=== PATIENT | male | born 1930 | race Caucasian/White ===

== ENCOUNTER 2017-10-16 10:02 | Emergency (ER) | payer MEDICARE ==
--- NOTE | 2017-10-16 10:20 | ER Document Report ---
ED Fall - General Stated Complaint: WEAKNESS Time Seen by Provider: 10/16/17 10:06 Mode of Arrival: Stretcher Information source: Relative, Emergency Med Personnel Notes: Patient is an 86-year-old male with past medical history including diabetes and dementia who lives at home with his son and who presents today after a fall that was witnessed 2 days ago. Patient was with his other son when he fell off a kitchen chair onto his buttocks. Patient at that time was able to walk into his bedroom. Since then the son states the patient has been unwilling to walk. He believes it is pain mostly to his right hip. Patient supposedly did not hit his head. Patient has had no nausea, vomiting, fevers, or diarrhea. Patient has not complained of any abdominal pain. Patient is normally not oriented to person place or time and has a difficulty hearing. - HPI Occurred: Other - See above Where: Home Context: Fell from sitting Associated symptoms: None Location of injury/pain: Other - See above Quality of pain: Other - See above Severity: Mild Pain Level: 2 Prehospital interventions: Other - See above - Related data Allergies/Adverse Reactions: No Known Allergies Allergy (Verified 10/16/17 10:19) Past Medical History - General Information source: Patient - Social History Smoking Status: Unknown if Ever Smoked Cigarette use (# per day): No Chew tobacco use (# tins/day): No Smoking Education Provided: No Frequency of alcohol use: None Family History: Reviewed & Not Pertinent Review of Systems - Review of Systems -: Yes ROS unobtainable due to patient's medical condition Physical Exam - Vital signs Vitals: Resp Pulse Ox 20 96 10/16/17 10:15 10/16/17 10:15 Notes: Reviewed vital signs and nursing note as charted by RN. CONSTITUTIONAL: Alert but is not oriented to person place or time HEAD: Normocephalic; atraumatic EYES: PERRL ENT: Normal nose; no rhinorrhea; moist mucous membranes NECK: Supple without meningismus; non-tender; no cervical lymphadenopathy CARD: Regular rate and rhythm; no murmurs; symmetric distal pulses RESP: Normal chest excursion without splinting or tachypnea; breath sounds clear and equal bilaterally; no tenderness to anterior posterior palpation of the ribs ABD/GI: Normal bowel sounds; non-distended; soft, non-tender to deep palpation of all 4 quadrants of the abdomen. No abdominal bruits or palpable masses present BACK: The back appears normal and is non-tender to palpation along the midline spine or posterior ribs EXT: Patient has some tenderness when I attempt to internally or externally rotate his right hip. There is no obvious leg swelling, shortening, or deformities present. I do not palpate any tenderness to the right femur, knee, tibia-fibula, ankle, or foot SKIN: No acute lesions noted NEURO: Patient appears to move bilateral upper extremities without pain or difficulty PSYCH: The patient's mood and manner are appropriate. Grooming and personal hygiene are appropriate. Course - Re-evaluation Re-evalutation: 10/16/17 10:19 Given the above history and physical examination and the limited history, with a witnessed fall 2 days ago, I will obtain basic labs, catheterized urine analysis as the patient is incontinent, and x-ray of the lumbosacral spine, pelvis, and right hip. Labs as recorded. Elevated ketones in the urine. Glucose 300. Liter fluid has been ordered. Catheterized urine analysis shows no obvious infection. Given the x-ray readings, I have added an MRI of the lumbar spine as well as an x-ray of the right femur, knee, tibia/fibula. 10/16/17 16:07 Patient still has no focal weakness of the lower extremities. MRI is recorded. Fluid is still infusing. With the patient's and family's consent, we will attempt to walk the patient slowly. 10/16/17 16:13 I have placed a call and referral to Dr. Saravia, pain management that performs kyphoplasty. 10/16/17 16:39 I have offered the family admission for possible 2 day stay in the hospital for possible referral for a nursing care facility. Family graciously declined. They would like to take the patient home. I have reexamined the patient thoroughly and I still detect only pain to the right leg. No swelling to detect DVT. X-rays and imaging as recorded. Patient will be discharged home with strict return precautions and instructions to follow-up with the primary care physician as well as the ornamental painter. - Vital Signs Vital signs: Temp Pulse Resp BP Pulse Ox 99.4 F 22 H 165/83 H 95 10/16/17 10:27 10/16/17 16:01 10/16/17 16:01 10/16/17 16:01 - Laboratory Result Diagrams: 10/16/17 11:15 10/16/17 11:15 Laboratory results interpreted by me: 10/16/17 10/16/17 10/16/17 11:15 11:15 12:10 WBC 10.9 H RDW 15.2 H Seg Neutrophils % 81.5 H Lymphocytes % 7.8 L Absolute Neutrophils 8.9 H Glucose 301 H AST 16 L ALT 18 L Alkaline Phosphatase 129 H Albumin 3.3 L Urine Protein 30 H Urine Glucose (UA) >=500 H Urine Ketones 80 H Urine Blood SMALL H Discharge - Discharge Clinical Impression: Fall Qualifiers: Encounter type: initial encounter Qualified Code(s): W19.XXXA - Unspecified fall, initial encounter Condition: Good Disposition: HOME, SELF-CARE Additional Instructions: Come back immediately with any increased pain, weakness or numbness, fevers or vomiting, or any other acute problems. Please follow-up with Dr. Saravia as we have discussed and have attempted to set up for you. If you do provide the [place] medication, please make sure that you provide a stool softener as this can be very constipating. Prescriptions: Hydrocodone/Acetaminophen [[place] 5-325 Tablet] 1 each PO Q6 PRN #12 tablet PRN Reason: For Pain Referrals: PREM LUEVANO MD [Primary Care Provider] - Follow up as needed MARTHA SARAVIA MD [ACTIVE STAFF] - Follow up as needed
--- NOTE | 2017-10-16 10:55 | RADIOLOGY REPORT (SQ) ---
EXAM DESCRIPTION: HIP RIGHT AP/LATERAL COMPLETED DATE/TIME: 10/16/2017 10:39 am REASON FOR STUDY: MP; fall COMPARISON: None. NUMBER OF VIEWS: Four views. TECHNIQUE: AP pelvis and additional frog-leg view of the right hip. LIMITATIONS: None. FINDINGS: MINERALIZATION: Osteopenia. RIGHT HIP: No fracture or dislocation. No worrisome bone lesions. LEFT HIP: No fracture or dislocation. No worrisome bone lesions. PUBIS AND ISCHIUM: No fracture. PELVIS: No fracture. SACRUM: No fracture or dislocation. No worrisome bone lesions. LOWER LUMBAR SPINE: No fracture or dislocation. No worrisome bone lesions. Mild degenerative changes are present. SOFT TISSUES: Multiple surgical clips project in the bilateral inguinal regions. Atherosclerotic vas cular calcifications are present. OTHER: No other significant finding. IMPRESSION: Osteopenia. No evidence of fracture or dislocation. TECHNICAL DOCUMENTATION: JOB ID: [id number] [employer]- All Rights Reserved Reading location - IP/workstation name: [email or web address]
--- NOTE | 2017-10-16 10:58 | RADIOLOGY REPORT (SQ) ---
EXAM DESCRIPTION: L SPINE WHOLE COMPLETED DATE/TIME: 10/16/2017 10:39 am REASON FOR STUDY: 25, fall COMPARISON: None. NUMBER OF VIEWS: Five views including obliques. TECHNIQUE: AP, lateral, oblique, and sacral radiographic images acquired of the lumbar spine. LIMITATIONS: None. FINDINGS: MINERALIZATION: Osteopenia. SEGMENTATION: Normal. No transitional anatomy. ALIGNMENT: Normal. VERTEBRAE: Slight compression deformity of the L2 vertebral body. Small marginal osteophytes are see n at all levels. DISCS: Mild loss of intervertebral disc height at the L4/5 more so than the L3/4 level. POSTERIOR ELEMENTS: Pedicles and facets are intact. No pars defect or posterior arch defects. HARDWARE: None in the spine. PARASPINAL SOFT TISSUES: Dense atherosclerotic vascular calcifications are present. Surgical clips p roject over the left upper quadrant. PELVIS: Intact as visualized. No fractures or worrisome bone lesions. SI joints intact. OTHER: No other significant finding. IMPRESSION: Osteopenia. Mild compression deformity of the L2 vertebral body, age indeterminate. TECHNICAL DOCUMENTATION: JOB ID: [id number] [employer]- All Rights Reserved Reading location - IP/workstation name: [email or web address]
[2017-10-16 11:48] LABS: ABSOLUTE LYMPHOCYTES (AUTO) 0.9 10^3/uL (0.5-4.7); ABSOLUTE MONOCYTES (AUTO) 1.1 10^3/uL (0.1-1.4); ABSOLUTE NEUT (AUTO) 8.9 10^3/uL (1.7-8.2); BASOPHILS % (AUTO) 0.4 % (0-2); EOSINOPHILS % (AUTO) 0.3 % (0-6); HEMATOCRIT 42.3 % (37.9-51.0); LYMPHOCYTES % (AUTO) 7.8 % (13-45); MEAN CORPUSCULAR HEMOGLOBIN 28.6 pg (27.0-33.4); MEAN CORPUSCULAR HGB CONC 33.2 g/dL (32.0-36.0); MEAN CORPUSCULAR VOLUME 86 fl (80-97); PLATELET COUNT 245 10^3/uL (150-450); RED BLOOD COUNT 4.91 10^6/uL (4.35-5.55); RED CELL DISTRIBUTION WIDTH 15.2 % (11.5-14.0); SEGMENTED NEUTROPHILS % (AUTO) 81.5 % (42-78); TOTAL CELLS COUNTED % (AUTO) 100 %; WHITE BLOOD COUNT 10.9 10^3/uL (4.0-10.5)
[2017-10-16 11:55] LABS: ALANINE AMINOTRANSFERASE 18 U/L (21-72); ALBUMIN 3.3 g/dL (3.5-5.0); ALKALINE PHOSPHATASE 129 U/L (38-126); ANION GAP 17 (5-19); ASPARTATE AMINO TRANSFERASE 16 U/L (17-59); BILIRUBIN,DIRECT 0.3 mg/dL (0.0-0.4); BILIRUBIN,TOTAL 0.9 mg/dL (0.2-1.3); BLOOD UREA NITROGEN 17 mg/dL (7-20); CALCIUM 8.6 mg/dL (8.4-10.2); CARBON DIOXIDE 22 mmol/L (22-30); CHLORIDE 99 mmol/L (98-107); GLUCOSE 301 mg/dL (75-110); POTASSIUM 4.6 mmol/L (3.6-5.0); SODIUM 137.7 mmol/L (137-145); TOTAL PROTEIN 7.1 g/dL (6.3-8.2)
[2017-10-16 12:35] LABS: APPEARANCE,URINE CLEAR; BILIRUBIN,URINE NEGATIVE (NEGATIVE); COLOR,URINE YELLOW; GLUCOSE, URINE >=500 mg/dL (NEGATIVE); KETONES,URINE 80 mg/dL (NEGATIVE); LEUKOCYTE ESTERASE,URINE NEGATIVE (NEGATIVE); NITRITE,URINE NEGATIVE (NEGATIVE); PROTEIN,URINE 30 mg/dL (NEGATIVE); URINE SPECIFIC GRAVITY 1.033; UROBILINOGEN,URINE NEGATIVE mg/dL (<2.0)
--- NOTE | 2017-10-16 13:12 | RADIOLOGY REPORT (SQ) ---
EXAM DESCRIPTION: FEMUR RIGHT COMPLETED DATE/TIME: 10/16/2017 12:59 pm REASON FOR STUDY: mp; fall COMPARISON: Right hip radiographs 10/16/2017 NUMBER OF VIEWS: Two views. TECHNIQUE: Two radiographic images acquired of the right femur to include hip and knee in at least o ne projection. LIMITATIONS: None. FINDINGS: MINERALIZATION: Osteopenia. BONES: No acute fracture. No worrisome bone lesions. SOFT TISSUES: Atherosclerotic vascular calcifications, dystrophic calcifications, and surgical clips are present. OTHER: No other significant finding. IMPRESSION: Osteopenia. No evidence of acute osseous injury. TECHNICAL DOCUMENTATION: JOB ID: [id number] [employer] All Rights Reserved Reading location - IP/workstation name: [email or web address]
--- NOTE | 2017-10-16 13:13 | RADIOLOGY REPORT (SQ) ---
EXAM DESCRIPTION: TIBIA FIBULA RIGHT COMPLETED DATE/TIME: 10/16/2017 12:59 pm REASON FOR STUDY: MP; fall COMPARISON: Right femur radiograph 10/16/2017 NUMBER OF VIEWS: Two views. TECHNIQUE: Two radiographic images acquired of the right tibia and fibula to include the knee and an kle in at least one projection. LIMITATIONS: None. FINDINGS: MINERALIZATION: Osteopenia. BONES: No acute fracture or dislocation. No worrisome bone lesions. SOFT TISSUES: Atherosclerotic vascular calcifications and surgical clips are present. No obvious swe lling. OTHER: No other significant finding. IMPRESSION: Osteopenia. No evidence of acute osseous injury. TECHNICAL DOCUMENTATION: JOB ID: [id number] [employer]- All Rights Reserved Reading location - IP/workstation name: [email or web address]
--- NOTE | 2017-10-16 13:14 | RADIOLOGY REPORT (SQ) ---
EXAM DESCRIPTION: KNEE RIGHT 4 VIEWS COMPLETED DATE/TIME: 10/16/2017 12:59 pm REASON FOR STUDY: mp; fall COMPARISON: Right femur and tibia/ fibula radiographs 10/16/2017 NUMBER OF VIEWS: Four views. TECHNIQUE: AP, lateral, and both oblique radiographic images acquired of the right knee. LIMITATIONS: None. FINDINGS: MINERALIZATION: Osteopenia. BONES: No acute fracture or dislocation. No worrisome bone lesions. JOINT: No effusion. SOFT TISSUES: No soft tissue swelling. Surgical clips and atherosclerotic vascular calcifications ar e present. OTHER: No other significant finding. IMPRESSION: Osteopenia. No evidence of acute osseous injury. TECHNICAL DOCUMENTATION: JOB ID: [id number] [employer]- All Rights Reserved Reading location - IP/workstation name: [email or web address]
[2017-10-16] MEDS ORDERED: NORMAL SALINE 1000 ML 1,000 ML IV ONE (13:28)
--- NOTE | 2017-10-16 15:03 | RADIOLOGY REPORT (SQ) ---
EXAM DESCRIPTION: MRI LUMBAR SPINE WITHOUT COMPLETED DATE/TIME: 10/16/2017 2:50 pm REASON FOR STUDY: MP; eval for new or old compression fx COMPARISON: Plain films dated 10/16/2017 TECHNIQUE: Sagittal STIR sequences. Coronal T2/HASTE imaging. LIMITATIONS: Study is limited as the patient refused to complete the study in motion artifact is deepa ntified on the sequences obtained. FINDINGS: SEGMENTATION: No transitional anatomy. The lowest well-developed disc space is labeled L5- S1. ALIGNMENT: Anatomic. VERTEBRAE: There is mild compression of the L2 vertebra BONE MARROW: There is some minimal increased signal involving the L2 vertebra suggesting a recent com pression. DISC SIGNAL: There is multilevel disc degeneration POSTERIOR ELEMENTS: Generally intact. No pars defect evident. HARDWARE: None in the spine. CORD AND CONUS: Normal in size and signal intensity. Conus at the appropriate level. SOFT TISSUES: No aortic aneurysm seen. No bulky retroperitoneal adenopathy or mass. No paraspinal mas s or fluid. L1-L2: No significant spinal stenosis or exit foraminal stenosis. L2-L3: No significant spinal stenosis or exit foraminal stenosis. L3-L4: No significant spinal stenosis or exit foraminal stenosis. L4-L5: No significant spinal stenosis or exit foraminal stenosis. L5-S1: No significant spinal stenosis or exit foraminal stenosis. LOWER THORACIC: Incompletely imaged. No stenosis seen. SACRUM: Visualized upper sacrum intact. OTHER: No other significant findings. IMPRESSION: Limited study as noted above. There is mild compression of the L2 vertebra with some mi nimal increased signal intensity involving the L2 vertebra suggesting a recent compression. Other fi ndings as noted above TECHNICAL DOCUMENTATION: JOB ID: [id number] [employer]- All Rights Reserved Reading location - IP/workstation name: [email or web address]
[2017-10-16 20:58] VITALS: BP 173/68
== END 2017-10-16 21:05 | disposition home or self-care (01) ==
LOC: ER 10:02 → EDBD 10:02 → ER 21:05
DX: M79.604 Pain in right leg (principal); W07.XXXA Fall from chair, initial encounter; Y92.009 Unspecified place in unspecified non-institutional (private) residence as the place of occurrence of the external cause; F03.90 Unspecified dementia, unspecified severity, without behavioral disturbance, psychotic disturbance, mood disturbance, and anxiety; R32 Unspecified urinary incontinence; R53.1 Weakness; E11.9 Type 2 diabetes mellitus without complications
CPT/HCPCS: 99285; 96360; 51701; 36415; 85025; 80053; 81001; 72148; 73552; 73502; 73564; 72110; 73590; J7030

== ENCOUNTER 2017-10-21 10:16 | Inpatient (IN) | payer MEDICARE ==
[2017-10-21] MEDS ORDERED: NORMAL SALINE 1000 ML 1,000 ML IV ONE (10:26)
[2017-10-21] MEDS ORDERED: MORPHINE SULFATE 10 MG/ML INJ IV ONE (10:27)
--- NOTE | 2017-10-21 10:31 | ER Document Report ---
ED General - General Stated Complaint: BACK PAIN Time Seen by Provider: 10/21/17 10:25 TRAVEL OUTSIDE OF THE [place] IN LAST 30 DAYS: No - HPI Patient complains to provider of: Back Pain Notes: Elderly man presents with 10/10 sharp lower back pain with radiation to his bilateral posterior thighs. Pain is sharp in nature nothing is made it better or worse. Patient was documented to have an L2 compression fracture 5 days ago. Patient is nonambulatory now secondary to intense pain. No focal neurologic deficit noted. Patient had MRI performed of his lumbar spine that was significantly degraded by movement artifact. - Related Data Allergies/Adverse Reactions: No Known Allergies Allergy (Verified 10/16/17 10:19) Past Medical History - Social History Smoking Status: Unknown if Ever Smoked Family History: Reviewed & Not Pertinent Endocrine Medical History: Reports: Hx Diabetes Mellitus Type 2 Renal/ Medical History: Reports: Hx Kidney Stones. Denies: Hx Peritoneal Dialysis Past Surgical History: Reports: Hx Cardiac Surgery - bypass Review of Systems - Review of Systems Notes: REVIEW OF SYSTEMS: CONSTITUTIONAL: -fevers, -chills EENT: -eye pain, -difficulty swallowing, -nasal congestion CARDIOVASCULAR: -chest pain, -syncope. RESPIRATORY: -cough, -SOB GASTROINTESTINAL: -abdominal pain, -nausea, -vomiting, -diarrhea GENITOURINARY: -dysuria, -hematuria MUSCULOSKELETAL: +back pain, -neck pain SKIN: -rash or skin lesions. HEMATOLOGIC: -easy bruising or bleeding. LYMPHATIC: -swollen, enlarged glands. NEUROLOGICAL: -altered mental status or loss of consciousness, -headache, - neurologic symptoms PSYCHIATRIC: -anxiety, -depression. ALL OTHER SYSTEMS REVIEWED AND NEGATIVE. Physical Exam - Vital signs Vitals: Temp BP 97.8 F 176/86 H 10/21/17 10:17 10/21/17 10:17 - Notes Notes: PHYSICAL EXAMINATION: GENERAL: Well-appearing, well-nourished and in no acute distress. HEAD: Atraumatic, normocephalic. EYES: Pupils equal round and reactive to light, extraocular movements intact, sclera anicteric, conjunctiva are normal. ENT: nares patent, oropharynx clear without exudates. Moist mucous membranes. NECK: Normal range of motion, supple without lymphadenopathy LUNGS: Breath sounds clear to auscultation bilaterally and equal. No wheezes rales or rhonchi. HEART: Regular rate and rhythm without murmurs ABDOMEN: Soft, nontender, normoactive bowel sounds. No guarding, no rebound. No masses appreciated. EXTREMITIES: Normal range of motion, no pitting or edema. No cyanosis. NEUROLOGICAL: Cranial nerves grossly intact. Normal speech, normal gait. Normal sensory and motor exams. PSYCH: Normal mood, normal affect. SKIN: Warm, Dry, normal turgor, no rashes or lesions noted. Course - Re-evaluation Re-evalutation: 10/21/17 10:30 Unfortunate 86-year-old male presents with extreme back pain. Patient has outpatient x-rays performed and shows possible L2 compression fracture. Attempted MRI degraded by motion. Patient presents mildly tachycardic initially. Given fluid resuscitation pain management extensive lab workup. Will obtain noncontrast CAT scan lumbar spine to further evaluate fracture. Patient will be admitted to the hospital for definitive management. 10/21/17 12:37 CT redemonstrates lumbar fracture extensive lab workup unremarkable patient will be admitted for definitive management. - Vital Signs Vital signs: Temp Pulse Resp BP Pulse Ox 97.8 F 28 H 135/69 H 96 10/21/17 10:17 10/21/17 12:03 10/21/17 12:03 10/21/17 12:03 - Laboratory Result Diagrams: 10/21/17 12:00 10/21/17 12:00 - EKG Interpretation by Me Additional EKG results interpreted by me: 10/21/17 10:43 Normal sinus 100 bpm, no ST elevations or depressions, normal QRS., No pathologic T-wave inversions. Discharge - Discharge Clinical Impression: Compression fracture Condition: Stable Disposition: ADMITTED INPATIENT Admitting Provider: [facility] Unit Admitted: Medical Floor
--- NOTE | 2017-10-21 11:17 | RADIOLOGY REPORT (SQ) ---
EXAM DESCRIPTION: CT LUMBAR SPINE WITHOUT COMPLETED DATE/TIME: 10/21/2017 10:54 am REASON FOR STUDY: back pain COMPARISON: None. Correlation: MRI 10/16/2017. TECHNIQUE: Axial images acquired through the lumbar spine without intravenous contrast. Images revi ewed with lung, soft tissue and bone windows. Reconstructed coronal and sagittal MPR images reviewed . All images stored on PACS. All CT scanners at this facility use dose modulation, iterative reconstruction, and/or weight based d osing when appropriate to reduce radiation dose to as low as reasonably achievable (ALARA). [facility]: Dose Right [facility]: CareDose [facility]: Dose Right [facility]: Teradose 4D [facility]: [employer] RADIATION DOSE: mGy. LIMITATIONS: Motion. FINDINGS: Bones are osteopenic. There is a compression fracture of L2 approximately 25% height loss . Mild retropulsion. No obvious acute disc herniation. Facet arthropathy. No other acute findings . IMPRESSION: Recent osteoporotic compression fracture L2. TECHNICAL DOCUMENTATION: JOB ID: [id number] Quality ID # [id number]: Final reports with documentation of one or more dose reduction techniques (e.g., Au tomated exposure control, adjustment of the mA and/or kV according to patient size, use of iterative reconstruction technique) 2010 [employer]- All Rights Reserved Reading location - IP/workstation name: [email or web address]
[2017-10-21 12:27] LABS: AMORPHOUS SEDIMENT,URINE 1+ /HPF; APPEARANCE,URINE TURBID; BILIRUBIN,URINE NEGATIVE (NEGATIVE); GLUCOSE, URINE >=500 mg/dL (NEGATIVE); KETONES,URINE 20 mg/dL (NEGATIVE); LEUKOCYTE ESTERASE,URINE NEGATIVE (NEGATIVE); NITRITE,URINE NEGATIVE (NEGATIVE); PROTEIN,URINE NEGATIVE (NEGATIVE); URINE SPECIFIC GRAVITY 1.028
[2017-10-21 12:30] LABS: ABSOLUTE LYMPHOCYTES (AUTO) 1.1 10^3/uL (0.5-4.7); ABSOLUTE MONOCYTES (AUTO) 0.8 10^3/uL (0.1-1.4); BASOPHILS % (AUTO) 0.5 % (0-2); EOSINOPHILS % (AUTO) 0.4 % (0-6); HEMATOCRIT 47.6 % (37.9-51.0); HEMOGLOBIN 15.5 g/dL (13.5-17.0); LYMPHOCYTES % (AUTO) 10.7 % (13-45); MEAN CORPUSCULAR HGB CONC 32.5 g/dL (32.0-36.0); MEAN CORPUSCULAR VOLUME 86 fl (80-97); MONOCYTES % (AUTO) 7.8 % (3-13); PLATELET COUNT 228 10^3/uL (150-450); RED BLOOD COUNT 5.51 10^6/uL (4.35-5.55); RED CELL DISTRIBUTION WIDTH 15.5 % (11.5-14.0); SEGMENTED NEUTROPHILS % (AUTO) 80.6 % (42-78); TOTAL CELLS COUNTED % (AUTO) 100 %; WHITE BLOOD COUNT 9.9 10^3/uL (4.0-10.5)
[2017-10-21 12:31] LABS: COLOR,URINE DARK YELLOW
[2017-10-21 12:33] LABS: ANION GAP 15 (5-19); BLOOD UREA NITROGEN 19 mg/dL (7-20); CALCIUM 9.1 mg/dL (8.4-10.2); CARBON DIOXIDE 24 mmol/L (22-30); CHLORIDE 102 mmol/L (98-107); GLUCOSE 293 mg/dL (75-110); POTASSIUM 4.7 mmol/L (3.6-5.0); SODIUM 141.2 mmol/L (137-145)
[2017-10-21] MEDS ORDERED: DEXTROSE 40% GEL 15 GM TUBE PO PRN ×2 (17:47)
[2017-10-21] MEDS ORDERED: GLUCAGON,HUMAN RECOMB 1 MG INJ IM PRN (17:47)
[2017-10-21] MEDS ORDERED: DEXTROSE 50%-WATER 25 GM/50 ML DISP.SYRIN IV PRN ×2 (17:47)
--- NOTE | 2017-10-21 17:52 | EKG REPORT ---
SEVERITY:- ABNORMAL ECG - ATRIAL FIBRILLATION PROBABLE INFERIOR INFARCT, AGE INDETERMINATE ANTERIOR INFARCT, OLD : Confirmed by: Ravinder Newton 21-Oct-2017 17:52:00
[2017-10-21] MEDS: NORMAL SALINE 1000 ML 1,000 ML IV PRN (18:23)
[2017-10-21] MEDS: INSULIN LISPRO 100 UNIT/ML 3 ML VIAL SUBCUT PRN (18:23)
--- NOTE | 2017-10-21 18:46 | RADIOLOGY REPORT (SQ) ---
EXAM DESCRIPTION: CHEST SINGLE VIEW COMPLETED DATE/TIME: 10/21/2017 6:31 pm REASON FOR STUDY: PNEUMONIA COMPARISON: None. EXAM PARAMETERS: NUMBER OF VIEWS: One view. TECHNIQUE: Single frontal radiographic view of the chest acquired. RADIATION DOSE: NA LIMITATIONS: None. FINDINGS: LUNGS AND PLEURA: No opacities, masses or pneumothorax. No pleural effusion. MEDIASTINUM AND HILAR STRUCTURES: No masses. Contour normal. HEART AND VASCULAR STRUCTURES: Cardiomegaly without evidence of failure. Tortuous descending aorta. BONES: No acute findings. HARDWARE: Sternotomy wires. OTHER: No other significant finding. IMPRESSION: Cardiomegaly without CHF. Tortuous descending aorta. TECHNICAL DOCUMENTATION: JOB ID: [id number] [employer]- All Rights Reserved Reading location - IP/workstation name: [email or web address]
[2017-10-21 19:04] LABS: INTERNATIONAL RATION (INR) 1.12
[2017-10-21 19:10] LABS: LIPASE 62.2 U/L (23-300); PHOSPHORUS 3.5 mg/dL (2.5-4.5)
[2017-10-21 19:33] LABS: FREE T4 (FREE THYROXINE) 2.55 ng/dL (0.78-2.19)
[2017-10-21 19:34] LABS: TROPONIN I < 0.012 ng/mL
[2017-10-21 19:47] LABS: THYROID STIMULATING HORMONE 0.57 uIU/mL (0.47-4.68)
--- NOTE | 2017-10-21 20:36 | PDOC H&P ---
History of Present Illness Admission Date/PCP: 10/21/17 11:05 PREM LUEVANO MD History of Present Illness: RUMA HALL is a 86 year old male,He was evaluated in the emergency room on 10/16/2017 when he presented to the emergency department with a history of witnessed fall that occurred 2 days before he presented to the emergency room for evaluation. Patient was transferred to the emergency room by EMS accompanied by his son the history was that patient fell off a kitchen chair onto his buttock, he was able to ambulate into his bedroom subsequently but in the last 24 hours before he presented to the ER he was not ambulating. In the emergency room x-rays of the joints, lumbar spine including MRI of the lumbar spine was done, MRI of the lumbar spine showed mild compression fracture of L2 vertebra with some minimal increase signal intensity involving the L2 vertebra suggesting a recent compression fracture. He came to the office on a stretcher with EMS accompanied by his son, the son stated that patient has not ambulated since he fell, I reviewed the MRI lumbar spine in the office I was not convinced that a mild compression fracture of the L2 vertebra will cause such weakness of the lower extremities I felt patient needed to be admitted to the hospital for further evaluation. I requested for MRI of the brain but for some reason a CT scan of the brain was done instead, it demonstrated no hemorrhage nor mass lesion there was diffuse cerebral atrophy with mild to moderate periventricular and deep white matter chronic microvascular changes. 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 family also stated that patient has not been eating or drinking the last few days. Past Medical History Endocrine Medical History: Reports: Diabetes Mellitus Type 2 Psychiatric Medical History: Reports: Dementia Social History Smoking Status: Former Smoker Frequency of Alcohol Use: None Hx Recreational Drug Use: No Drugs: None Hx Prescription Drug Abuse: No Family History Family History: Reviewed & Not Pertinent Parental Family History Reviewed: Yes Children Family History Reviewed: Yes Sibling(s) Family History Reviewed.: Yes Medication/Allergy Home Medications: Hydrocodone/Acetaminophen [[place] 5-325 Tablet] 1 each PO Q6 PRN #12 tablet 10/16 Aspirin [Aspirin EC] 81 mg PO DAILY 10/21/17 Allergies/Adverse Reactions: No Known Allergies Allergy (Verified 10/16/17 10:19) Review of Systems ROS unobtainable: Due to mental status Physical Exam Vital Signs: Temp Pulse Resp BP Pulse Ox 98.2 F 88 12 145/51 H 95 10/21/17 16:36 10/21/17 19:00 10/21/17 16:36 10/21/17 16:36 10/21/17 16:36 Intake & Output 10/20/17 10/21/17 10/22/17 06:59 06:59 06:59 Weight 78.4 kg Eye exam: PRESENT: PERRLA Respiratory exam: PRESENT: clear to auscultation wenceslao Cardiovascular exam: PRESENT: +S1, +S2 GI/Abdominal exam: PRESENT: soft Neurological exam: PRESENT: alert, other - Weakness of the lower extremities Results Laboratory Results: 10/21/17 12:00 10/21/17 12:00 10/21/17 10/21/17 10/21/17 11:27 12:00 12:00 WBC 9.9 RBC 5.51 Hgb 15.5 Hct 47.6 MCV 86 MCH 28.0 MCHC 32.5 RDW 15.5 H Plt Count 228 Seg Neutrophils % 80.6 H Lymphocytes % 10.7 L Monocytes % 7.8 Eosinophils % 0.4 Basophils % 0.5 Absolute Neutrophils 8.0 Absolute Lymphocytes 1.1 Absolute Monocytes 0.8 Absolute Eosinophils 0.0 Absolute Basophils 0.0 Sodium 141.2 Potassium 4.7 Chloride 102 Carbon Dioxide 24 Anion Gap 15 BUN 19 Creatinine 0.64 Est GFR ( Amer) > 60 Est GFR (Non-Af Amer) > 60 Glucose 293 H Calcium 9.1 Phosphorus Magnesium Ammonia Amylase Lipase TSH Free T4 Urine Color DARK YELLOW Urine Appearance TURBID Urine pH 5.0 Ur Specific [place] 1.028 Urine Protein NEGATIVE Urine Glucose (UA) >=500 H Urine Ketones 20 H Urine Blood NEGATIVE Urine Nitrite NEGATIVE Ur Leukocyte Esterase NEGATIVE Urine WBC (Auto) 1 Urine RBC (Auto) 5 10/21/17 10/21/17 10/21/17 18:40 18:40 18:40 WBC RBC Hgb Hct MCV MCH MCHC RDW Plt Count Seg Neutrophils % Lymphocytes % Monocytes % Eosinophils % Basophils % Absolute Neutrophils Absolute Lymphocytes Absolute Monocytes Absolute Eosinophils Absolute Basophils Sodium Potassium Chloride Carbon Dioxide Anion Gap BUN Creatinine Est GFR ( Amer) Est GFR (Non-Af Amer) Glucose Calcium Phosphorus 3.5 Magnesium 1.7 Ammonia < 8.7 L Amylase 33 Lipase 62.2 TSH 0.57 Free T4 2.55 H Urine Color Urine Appearance Urine pH Ur Specific [place] Urine Protein Urine Glucose (UA) Urine Ketones Urine Blood Urine Nitrite Ur Leukocyte Esterase Urine WBC (Auto) Urine RBC (Auto) 10/21/17 10/21/17 18:40 18:40 Creatine Kinase 136 CK-MB (CK-2) 0.90 Troponin I < 0.012 Impressions: Lumbar Spine CT 10/21/17 10:29 IMPRESSION: Recent osteoporotic compression fracture L2. Chest X-Ray 10/21/17 17:44 IMPRESSION: Cardiomegaly without CHF. Tortuous descending aorta. Assessment & Plan - Diagnosis (1) Weakness of both lower extremities Is this a current diagnosis for this admission?: Yes Plan: The etiology of the weakness is not clear patient is essentially bedbound, is not ambulating, he would need physical therapy, he may need lumbar puncture but is seems that the trigger was the fall, before he fell he was ambulating ,so the proximate cause for the weakness is the fall (2) Compression fracture of L2 lumbar vertebra Qualifiers: Encounter type: initial encounter Fracture type: closed Qualified Code(s) : S32.020A - Wedge compression fracture of second lumbar vertebra, initial encounter for closed fracture Is this a current diagnosis for this admission?: Yes Plan: Consultation will be obtained from pain management for possible kyphoplasty (3) Dementia Qualifiers: Dementia type: Alzheimer's disease Is this a current diagnosis for this admission?: Yes (4) Dehydration Is this a current diagnosis for this admission?: Yes Plan: Start fluid therapy
[2017-10-21] MEDS: HYDROCODONE/ACETAMINOPHEN 10-325 MG TABLET PO PRN (20:57)
--- NOTE | 2017-10-21 21:34 | EKG REPORT ---
SEVERITY:- ABNORMAL ECG - ATRIAL FIBRILLATION, V-RATE 77-101 ANTERIOR INFARCT, AGE INDETERMINATE : Confirmed by: Ravinder Newton 21-Oct-2017 21:33:23
--- NOTE | 2017-10-21 23:46 | RADIOLOGY REPORT (SQ) ---
EXAM DESCRIPTION: CT HEAD WITHOUT IV CONTRAST COMPLETED DATE/TME: 10/21/2017 00:00 CLINICAL HISTORY: 86 years, Male, ?CVA COMPARISON: None. TECHNIQUE: Multisequence multiplanar images of the brain were obtained without contrast. Images stored on PACS. All CT scanners at this facility use dose modulation, iterative reconstruction, and/or weight based dosing when appropriate to reduce radiation dose to as low as reasonably achievable (ALARA). [facility]: Dose Right [facility]: CareDose [facility]: Dose Right [facility]: Teradose 4D [facility]: [employer] Technologies LIMITATIONS: None. FINDINGS: There is no hemorrhage, mass lesion, extra axial collection, cerebral edema, or mass effect. Diffusion sequences are normal. There is diffuse cerebral atrophy with mild to moderate periventricular and deep white matter chronic microvascular changes. 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 There are microvascular changes involving the central judy. There is no abnormal signal within the cerebellum. Susceptibility artifact is noted within the bilateral lentiform nucleus, likely due to mineralization. The lateral ventricles, cortical sulci, and basal cisterns are patent. The cerebellar tonsils are above foramen magnum. The sella is normal. The vascular flow-voids are unremarkable. The paranasal sinuses, orbits and mastoids are unremarkable. IMPRESSION: No acute intracranial abnormality TECHNICAL DOCUMENTATION: Quality ID # [id number]: Final reports with documentation of one or more dose reduction techniques (e.g., Automated exposure control, adjustment of the mA and/or kV according to patient size, use of iterative reconstruction technique) 2010 [employer]- All Rights Reserved
[2017-10-22 01:33] LABS: CREATINE KINASE MB 0.62 ng/mL (<4.55); TROPONIN I 0.013 ng/mL
[2017-10-22 07:19] LABS: ABSOLUTE BASOPHILS # (AUTO) 0.1 10^3/uL (0.0-0.2); ABSOLUTE EOSINOPHILS # (AUTO) 0.2 10^3/uL (0.0-0.6); ABSOLUTE LYMPHOCYTES (AUTO) 1.4 10^3/uL (0.5-4.7); ABSOLUTE MONOCYTES (AUTO) 0.8 10^3/uL (0.1-1.4); ABSOLUTE NEUT (AUTO) 5.8 10^3/uL (1.7-8.2); BASOPHILS % (AUTO) 0.7 % (0-2); EOSINOPHILS % (AUTO) 2.5 % (0-6); HEMATOCRIT 41.5 % (37.9-51.0); HEMOGLOBIN 13.7 g/dL (13.5-17.0); LYMPHOCYTES % (AUTO) 17.3 % (13-45); MEAN CORPUSCULAR HEMOGLOBIN 28.6 pg (27.0-33.4); MEAN CORPUSCULAR HGB CONC 33.1 g/dL (32.0-36.0); MEAN CORPUSCULAR VOLUME 87 fl (80-97); MONOCYTES % (AUTO) 9.9 % (3-13); PLATELET COUNT 181 10^3/uL (150-450); SEGMENTED NEUTROPHILS % (AUTO) 69.6 % (42-78); TOTAL CELLS COUNTED % (AUTO) 100 %; WHITE BLOOD COUNT 8.3 10^3/uL (4.0-10.5)
[2017-10-22 07:45] LABS: ALANINE AMINOTRANSFERASE 16 U/L (21-72); ALBUMIN 2.7 g/dL (3.5-5.0); ALKALINE PHOSPHATASE 121 U/L (38-126); ANION GAP 14 (5-19); ASPARTATE AMINO TRANSFERASE 21 U/L (17-59); BILIRUBIN,DIRECT 0.4 mg/dL (0.0-0.4); BILIRUBIN,TOTAL 0.7 mg/dL (0.2-1.3); BLOOD UREA NITROGEN 13 mg/dL (7-20); CALCIUM 8.3 mg/dL (8.4-10.2); CARBON DIOXIDE 22 mmol/L (22-30); CHLORIDE 108 mmol/L (98-107); CHOLESTEROL 129.54 mg/dL (0-200); CREATINE KINASE 63 U/L (55-170); GLUCOSE 198 mg/dL (75-110); SODIUM 143.6 mmol/L (137-145); TOTAL PROTEIN 6.3 g/dL (6.3-8.2); TRIGLYCERIDES 106 mg/dL (<150)
[2017-10-22 07:54] LABS: CREATINE KINASE MB 0.62 ng/mL (<4.55)
[2017-10-22 07:56] LABS: DIRECT LDL 81 mg/dL (<100)
[2017-10-22 07:58] LABS: TROPONIN I < 0.012 ng/mL
[2017-10-22] MEDS: NORMAL SALINE 1000 ML 1,000 ML IV PRN (09:46)
[2017-10-22] MEDS: ENOXAPARIN SODIUM INJ 40 MG/0.4 ML DISP.SYRIN SUBCUT SCH (09:47)
[2017-10-22] MEDS: INSULIN LISPRO 100 UNIT/ML 3 ML VIAL SUBCUT PRN (17:07)
--- NOTE | 2017-10-22 21:20 | PDOC PROGRESS REPORT ---
Subjective Progress Note for:: 10/22/17 Subjective:: Patient was admitted yesterday because of loss of mobility, decrease food and fluid intake, MRI of the brain was done, it demonstrated atrophy of the brain there is no acute pathology to explain the loss of mobility, he has compression fracture of L2 vertebral bone, consultation is obtained from the management to be considered for kyphoplasty. Patient is more alert today since he has been on the IV fluid therapy, he is also engaging in conversation Reason For Visit: WEAKNESS OF THE LOWER EXTREMITY,LOSS OF MOBILITY Physical Exam Vital Signs: Temp Pulse Resp BP Pulse Ox 97.8 F 86 22 H 150/75 H 99 10/22/17 19:58 10/22/17 19:58 10/22/17 19:58 10/22/17 19:58 10/22/17 19:58 Intake & Output 10/21/17 10/22/17 10/23/17 06:59 06:59 06:59 Intake Total 1000 1357 Balance 1000 1357 Weight 79.9 kg General appearance: PRESENT: no acute distress Eye exam: PRESENT: PERRLA Respiratory exam: PRESENT: clear to auscultation wenceslao Cardiovascular exam: PRESENT: +S1, +S2 GI/Abdominal exam: PRESENT: soft Neurological exam: PRESENT: alert Results Laboratory Results: 10/22/17 06:54 10/22/17 06:54 10/22/17 10/22/17 06:54 06:54 WBC 8.3 RBC 4.80 Hgb 13.7 Hct 41.5 MCV 87 MCH 28.6 MCHC 33.1 RDW 15.0 H Plt Count 181 Seg Neutrophils % 69.6 Lymphocytes % 17.3 Monocytes % 9.9 Eosinophils % 2.5 Basophils % 0.7 Absolute Neutrophils 5.8 Absolute Lymphocytes 1.4 Absolute Monocytes 0.8 Absolute Eosinophils 0.2 Absolute Basophils 0.1 Sodium 143.6 Potassium 4.0 Chloride 108 H Carbon Dioxide 22 Anion Gap 14 BUN 13 Creatinine 0.50 L Est GFR ( Amer) > 60 Est GFR (Non-Af Amer) > 60 Glucose 198 H Calcium 8.3 L Total Bilirubin 0.7 AST 21 ALT 16 L Alkaline Phosphatase 121 Total Protein 6.3 Albumin 2.7 L Triglycerides 106 Cholesterol 129.54 LDL Cholesterol Direct 81 VLDL Cholesterol 21.0 HDL Cholesterol 27 L 10/21/17 10/21/17 10/22/17 18:40 18:40 00:48 Creatine Kinase 136 78 CK-MB (CK-2) 0.90 Troponin I < 0.012 10/22/17 10/22/17 10/22/17 00:48 06:54 06:54 Creatine Kinase 63 CK-MB (CK-2) 0.62 0.62 Troponin I 0.013 < 0.012 Impressions: Head MRI 10/21/17 00:00 IMPRESSION: No acute intracranial abnormality TECHNICAL DOCUMENTATION: Quality ID # [id number]: Final reports with documentation of one or more dose reduction techniques (e.g., Automated exposure control, adjustment of the mA and/or kV according to patient size, use of iterative reconstruction technique) 2010 [employer]- All Rights Reserved Lumbar Spine CT 10/21/17 10:29 IMPRESSION: Recent osteoporotic compression fracture L2. Chest X-Ray 10/21/17 17:44 IMPRESSION: Cardiomegaly without CHF. Tortuous descending aorta. Assessment & Plan - Diagnosis (1) Weakness of both lower extremities Is this a current diagnosis for this admission?: Yes (2) Compression fracture of L2 lumbar vertebra Qualifiers: Encounter type: initial encounter Fracture type: closed Qualified Code(s) : S32.020A - Wedge compression fracture of second lumbar vertebra, initial encounter for closed fracture Is this a current diagnosis for this admission?: Yes (3) Dementia Qualifiers: Dementia type: Alzheimer's disease Is this a current diagnosis for this admission?: Yes (4) Dehydration Is this a current diagnosis for this admission?: Yes - Plan Summary Plan Summary: Continue hydration, consultation from physical therapy
[2017-10-23] MEDS: NORMAL SALINE 1000 ML 1,000 ML IV PRN ×2 (01:40→23:30)
[2017-10-23 05:56] LABS: ABSOLUTE EOSINOPHILS # (AUTO) 0.1 10^3/uL (0.0-0.6); ABSOLUTE LYMPHOCYTES (AUTO) 1.7 10^3/uL (0.5-4.7); ABSOLUTE MONOCYTES (AUTO) 0.8 10^3/uL (0.1-1.4); BASOPHILS % (AUTO) 0.4 % (0-2); EOSINOPHILS % (AUTO) 1.5 % (0-6); HEMATOCRIT 38.8 % (37.9-51.0); LYMPHOCYTES % (AUTO) 19.6 % (13-45); MEAN CORPUSCULAR HEMOGLOBIN 28.6 pg (27.0-33.4); MEAN CORPUSCULAR HGB CONC 33.5 g/dL (32.0-36.0); MEAN CORPUSCULAR VOLUME 85 fl (80-97); MONOCYTES % (AUTO) 9.3 % (3-13); PLATELET COUNT 180 10^3/uL (150-450); RED BLOOD COUNT 4.54 10^6/uL (4.35-5.55); RED CELL DISTRIBUTION WIDTH 15.3 % (11.5-14.0); SEGMENTED NEUTROPHILS % (AUTO) 69.2 % (42-78); TOTAL CELLS COUNTED % (AUTO) 100 %; WHITE BLOOD COUNT 8.6 10^3/uL (4.0-10.5)
[2017-10-23 06:17] LABS: ALANINE AMINOTRANSFERASE 20 U/L (21-72); ALBUMIN 2.5 g/dL (3.5-5.0); ALKALINE PHOSPHATASE 126 U/L (38-126); ANION GAP 13 (5-19); ASPARTATE AMINO TRANSFERASE 22 U/L (17-59); BILIRUBIN,DIRECT 0.4 mg/dL (0.0-0.4); BILIRUBIN,TOTAL 0.8 mg/dL (0.2-1.3); BLOOD UREA NITROGEN 8 mg/dL (7-20); CALCIUM 7.9 mg/dL (8.4-10.2); CARBON DIOXIDE 21 mmol/L (22-30); CHLORIDE 105 mmol/L (98-107); GLUCOSE 158 mg/dL (75-110); POTASSIUM 3.7 mmol/L (3.6-5.0); SODIUM 139.2 mmol/L (137-145); TOTAL PROTEIN 5.9 g/dL (6.3-8.2)
[2017-10-23] MEDS: ENOXAPARIN SODIUM INJ 40 MG/0.4 ML DISP.SYRIN SUBCUT SCH (09:14)
[2017-10-23] MEDS: INSULIN LISPRO 100 UNIT/ML 3 ML VIAL SUBCUT PRN ×2 (09:14→17:18)
--- NOTE | 2017-10-23 17:29 | XCELERA REPORT ---
[address] [address] Transthoracic Echocardiogram Report Name: RUMA HALL Age: 86 yrs Gender: Male : 1930 Patient Status: Inpatient Patient Location: [address] [place] [address] Study Date: 10/23/2017 03:21 PM Procedure: A two-dimensional transthoracic echocardiogram with color flow Doppler was performed. The study was technically difficult with many images being suboptimal in quality. Reason For Study: CARDIOMEGALY History: CARDIOMEGALY. Ordering Physician: PREM LUEVANO Performed By: Madison Flores Interpretation Summary The left ventricle is normal in size. There is normal left ventricular wall thickness. LV EF is 60% Left ventricular systolic function is normal. Doppler measurements suggest normal left ventricular diastolic function The left ventricular wall motion is normal. There is no thrombus. The right ventricle is not well visualized secondary to technical limitations The right atrium is normal. The left atrium is moderately dilated. There is no evidence of mitral valve prolapse. There is no mitral valve stenosis. There is a trace amount of mitral regurgitation There is no aortic valvular vegetation. There is no aortic valve stenosis There is no LVOT obstruction. There is aortic sclerosis without stenosis. There is a trace amount of aortic regurgitation There is no tricuspid stenosis. There is a mild amount of tricuspid regurgitation There is mild pulmonary hypertension by echo RVSP is 34 to 39 mm of Hg , with RA mean of 5 to 10. There is no pulmonic valvular stenosis. There is a trace amount of pulmonic regurgitation There is no pericardial effusion. MMode/2D Measurements & Calculations RVDd: 3.8 cm LVIDd: 3.9 cm FS: 31.9 % Ao root diam: 3.4 cm IVSd: 1.1 cm LVIDs: 2.7 cm EDV(Teich): 67.4 ml Ao root area: 8.9 cm2 LVPWd: 1.0 cm ESV(Teich): 26.5 ml LA dimension: 5.0 cm EF(Teich): 60.6 % Doppler Measurements & Calculations MV E max carl: MV P1/2t max carl: Ao V2 max: LV V1 max P.0 cm/sec 112.5 cm/sec 93.8 cm/sec 3.3 mmHg MV A max carl: MV P1/2t: 67.6 msec Ao max PG: LV V1 max: 45.4 cm/sec MVA(P1/2t): 3.3 cm2 3.5 mmHg 91.3 cm/sec MV E/A: 2.5 MV dec slope: 487.4 cm/sec2 MV dec time: 0.22 sec PA V2 max: PI end-d carl: TR max carl: 91.3 cm/sec 139.8 cm/sec 268.8 cm/sec PA max P.3 mmHg TR max P.9 mmHg Left Ventricle The left ventricle is normal in size. There is normal left ventricular wall thickness. LV EF is 60%. Left ventricular systolic function is normal. Doppler measurements suggest normal left ventricular diastolic function. The left ventricular wall motion is normal. There is no thrombus. Right Ventricle The right ventricle is not well visualized secondary to technical limitations. Atria The right atrium is normal. Right atrium not well visualized secondary to technical limitations. The left atrium is moderately dilated. Mitral Valve There is mild mitral annular calcification. There is no evidence of mitral valve prolapse. There is no vegetation seen on the mitral valve. There is no mitral valve stenosis. There is a trace amount of mitral regurgitation. Aortic Valve There is no aortic valvular vegetation. There is no aortic valve stenosis. There is no LVOT obstruction. There is aortic sclerosis without stenosis. There is a trace amount of aortic regurgitation. Tricuspid Valve There is no tricuspid stenosis. There is a mild amount of tricuspid regurgitation. There is mild pulmonary hypertension by echo. RVSP is 34 to 39 mm of Hg , with RA mean of 5 to 10. Pulmonic Valve There is no pulmonic valvular stenosis. There is a trace amount of pulmonic regurgitation. Great Vessels The aortic root is normal size. Effusions There is no pericardial effusion. : PREM LUEVANO > Melva Dupree
--- NOTE | 2017-10-23 17:36 | PDOC PROGRESS REPORT ---
Subjective Progress Note for:: 10/23/17 Subjective:: Patient is still nonambulatory, bedbound, 2D echo was done today for evaluation of cardiomegaly Reason For Visit: WEAKNESS OF THE LOWER EXTREMITY,LOSS OF MOBILITY Physical Exam Vital Signs: Temp Pulse Resp BP Pulse Ox 98.5 F 87 18 163/78 H 98 10/23/17 15:17 10/23/17 15:17 10/23/17 15:17 10/23/17 15:17 10/23/17 15:17 Intake & Output 10/22/17 10/23/17 10/24/17 06:59 06:59 06:59 Intake Total 1000 2357 Balance 1000 2357 Weight 79.9 kg 81.1 kg General appearance: PRESENT: no acute distress Eye exam: PRESENT: PERRLA Respiratory exam: PRESENT: clear to auscultation wenceslao Cardiovascular exam: PRESENT: +S1, +S2 GI/Abdominal exam: PRESENT: soft Neurological exam: PRESENT: alert Results Laboratory Results: 10/23/17 05:33 10/23/17 05:33 10/23/17 10/23/17 05:33 05:33 WBC 8.6 RBC 4.54 Hgb 13.0 L Hct 38.8 MCV 85 MCH 28.6 MCHC 33.5 RDW 15.3 H Plt Count 180 Seg Neutrophils % 69.2 Lymphocytes % 19.6 Monocytes % 9.3 Eosinophils % 1.5 Basophils % 0.4 Absolute Neutrophils 6.0 Absolute Lymphocytes 1.7 Absolute Monocytes 0.8 Absolute Eosinophils 0.1 Absolute Basophils 0.0 Sodium 139.2 Potassium 3.7 Chloride 105 Carbon Dioxide 21 L Anion Gap 13 BUN 8 Creatinine 0.44 L Est GFR ( Amer) > 60 Est GFR (Non-Af Amer) > 60 Glucose 158 H Calcium 7.9 L Total Bilirubin 0.8 AST 22 ALT 20 L Alkaline Phosphatase 126 Total Protein 5.9 L Albumin 2.5 L 10/21/17 10/21/17 10/22/17 18:40 18:40 00:48 Creatine Kinase 136 78 CK-MB (CK-2) 0.90 Troponin I < 0.012 10/22/17 10/22/17 10/22/17 00:48 06:54 06:54 Creatine Kinase 63 CK-MB (CK-2) 0.62 0.62 Troponin I 0.013 < 0.012 Impressions: Head MRI 10/21/17 00:00 IMPRESSION: No acute intracranial abnormality TECHNICAL DOCUMENTATION: Quality ID # [id number]: Final reports with documentation of one or more dose reduction techniques (e.g., Automated exposure control, adjustment of the mA and/or kV according to patient size, use of iterative reconstruction technique) 2010 [employer]- All Rights Reserved Lumbar Spine CT 10/21/17 10:29 IMPRESSION: Recent osteoporotic compression fracture L2. Chest X-Ray 10/21/17 17:44 IMPRESSION: Cardiomegaly without CHF. Tortuous descending aorta. Assessment & Plan - Diagnosis (1) Weakness of both lower extremities Is this a current diagnosis for this admission?: Yes (2) Compression fracture of L2 lumbar vertebra Qualifiers: Encounter type: initial encounter Fracture type: closed Qualified Code(s) : S32.020A - Wedge compression fracture of second lumbar vertebra, initial encounter for closed fracture Is this a current diagnosis for this admission?: Yes (3) Dementia Qualifiers: Dementia type: Alzheimer's disease Is this a current diagnosis for this admission?: Yes (4) Dehydration Is this a current diagnosis for this admission?: Yes - Plan Summary Plan Summary: Patient will be need physical therapy
[2017-10-24 07:26] LABS: ALANINE AMINOTRANSFERASE 23 U/L (21-72); ALBUMIN 2.9 g/dL (3.5-5.0); ALKALINE PHOSPHATASE 152 U/L (38-126); ANION GAP 17 (5-19); ASPARTATE AMINO TRANSFERASE 26 U/L (17-59); BILIRUBIN,DIRECT 0.5 mg/dL (0.0-0.4); BLOOD UREA NITROGEN 7 mg/dL (7-20); CALCIUM 8.1 mg/dL (8.4-10.2); CARBON DIOXIDE 17 mmol/L (22-30); CHLORIDE 101 mmol/L (98-107); GLUCOSE 186 mg/dL (75-110); POTASSIUM 3.8 mmol/L (3.6-5.0); SODIUM 134.7 mmol/L (137-145); TOTAL PROTEIN 6.3 g/dL (6.3-8.2)
[2017-10-24 07:57] LABS: ABSOLUTE BASOPHILS # (AUTO) 0.1 10^3/uL (0.0-0.2); ABSOLUTE EOSINOPHILS # (AUTO) 0.1 10^3/uL (0.0-0.6); ABSOLUTE LYMPHOCYTES (AUTO) 1.4 10^3/uL (0.5-4.7); ABSOLUTE NEUT (AUTO) 6.8 10^3/uL (1.7-8.2); BASOPHILS % (AUTO) 0.7 % (0-2); EOSINOPHILS % (AUTO) 1.1 % (0-6); HEMATOCRIT 42.5 % (37.9-51.0); HEMOGLOBIN 14.3 g/dL (13.5-17.0); LYMPHOCYTES % (AUTO) 14.9 % (13-45); MEAN CORPUSCULAR HEMOGLOBIN 28.7 pg (27.0-33.4); MEAN CORPUSCULAR HGB CONC 33.6 g/dL (32.0-36.0); MEAN CORPUSCULAR VOLUME 85 fl (80-97); MONOCYTES % (AUTO) 10.8 % (3-13); PLATELET COUNT 207 10^3/uL (150-450); RED BLOOD COUNT 4.97 10^6/uL (4.35-5.55); RED CELL DISTRIBUTION WIDTH 15.4 % (11.5-14.0); SEGMENTED NEUTROPHILS % (AUTO) 72.5 % (42-78); TOTAL CELLS COUNTED % (AUTO) 100 %; WHITE BLOOD COUNT 9.3 10^3/uL (4.0-10.5)
[2017-10-24] MEDS: HYDROCODONE/ACETAMINOPHEN 10-325 MG TABLET PO PRN (10:04)
[2017-10-24] MEDS: INSULIN LISPRO 100 UNIT/ML 3 ML VIAL SUBCUT PRN (13:21)
--- NOTE | 2017-10-24 14:10 | CONSULTATION REPORT E ---
Consultation Report NAME: RUMA HALL : 1930 AGE: 86Y DATE: 336 A TO: NEWTON SUMNER FROM: PREM LUEVANO M.D. Requesting Physician CHIEF COMPLAINT: Severe lower back pain. HISTORY OF PRESENT ILLNESS: This is an 86-year-old male consulted for lower back pain, secondary to what appears to be a compression fracture. Patient with history of dementia . Patient reports that he was at home about a week ago when he went to sit down and missed and fell out of the chair, and landed on his coccyx. At which time, patient seemed to be doing well with minimal issues the rest of that day. The following day, patient became less mobile, did not want to get up and spent more time laying down and laying still, and movement caused significant pain. Shortly after that, caregiver brought patient in to be seen for the pain, at which time an x-ray was completed and noted that he had a compression fracture at L2. Patient was next seen by primary care, where he was evaluated and treated and recommended treatment. Shortly after that patient was seen in the emergency room, due to severe increased pain that rendered him with very little mobility. While in the emergency room, the patient underwent an MRI, but was ineffective due to being significantly degraded by movement artifact. CT was completed, which also rendered the confirmation of an L2 compression fracture. At that point, patient was then admitted to the hospital for further workup and evaluation, along with dehydration, DM, and h/o advancing dementia. Patient currently states that the pain is in his lower back, aggravated with any type of major movement, especially rotating to the right side. He spends the most of his time on the left side to vadim any type of pain. He notes pain with movement of the bilateral lower extremities, as well. Denies any changes in bowel or bladder control otherwise. He notes that the pain prior to admission was severe and 10/10, but is much more tolerable with his current regimen of 5 mg of hydrocodone every 4 to 6 hours as needed. PAST MEDICAL HISTORY: Patient's past medical history is significant for diabetes type 2, advancing stages of dementia, history of renal stones and coronary artery disease. PAST SURGICAL HISTORY: Patient noted with a history of coronary artery bypass. SOCIAL HISTORY: Patient is a former smoker who denies any type of alcohol, recreational drug or prescription drug misuse or abuse. FAMILY HISTORY: Reviewed and not pertinent. MEDICATIONS: Prior to admission consisted of: 1. [place] 5 mg 1 tablet every 6 hours as needed. 2. Aspirin 81 mg 1 tablet daily. ALLERGIES: No known drug allergies. REVIEW OF SYSTEMS: CONSTITUTIONAL: Patient is lying in bed, responsive. Noted decreased hearing, but able to respond more effectively with writing things down on whiteboard. EENT: Denies any difficulty swallowing, nasal congestion, occlusion, ocular pain or pain with movement of his eyes. CARDIOVASCULAR: Denies any chest pain. RESPIRATORY: Denies any shortness of breath, tightness, cough, congestion. GASTROINTESTINAL: Denies any nausea, vomiting, abdominal pain, distention. SKIN: Notes some irritation of the left hip, possible skin ulcer. HEMATOLOGIC: Denies any easy bruising or bleeding. LYMPHATICS: Denies any swelling, enlarged lymph node/gland. MUSCULOSKELETAL: Does note some increased lower back pain, but denies any current numbness, tingling, burning. GENITOURINARY: Denies any hematuria or dysuria. NEUROLOGIC: NOted reported H/O dementia, denies loss of consciousness, changes in neurological symptoms. PSYCHIATRIC: Denies any depression, anxiety. ENDOCRINE: Denies any cold or heat intolerance. PHYSICAL EXAMINATION: VITAL SIGNS: Temperature 97.7, pulse 75, respirations 18, blood pressure 150/69, O2 saturation 98% on room air. GENERAL: Patient is a well-developed, well-nourished male, who is lying in bed, responsive to statements, sentences and interacting well with his son, provider and [id number]. HEAD: Normocephalic, atraumatic. EYES: PERRLA. EARS, NOSE AND THROAT: Noted patent nares. Moist mucous membranes. Noted decreased hearing upon exam, but responsive to written statement on the white board. NECK: Trachea midline. No goiter, masses or lesions. LUNGS: Clear to auscultation bilaterally. HEART: Shows regular rate and rhythm. No murmurs, gallops or rubs. ABDOMEN: Nontender, nondistended. Positive bowel sounds x4. No guarding, no rebound. EXTREMITIES: Normal range of motion. No pitting edema or any cyanotic changes. NEUROLOGIC: Cranial nerves appear to be intact, with noted sensation of bilateral lower and upper extremities on exam. PSYCHIATRIC: Patient is alert and oriented x3 today. SPINE: Noted point tenderness of the lower back at the L1, 2, 3 region on exam. Straight leg raises are negative bilaterally. No clonus noted on exam. Noted increased significant pain in trying to roll to the right side or any type of excessive movement or going from a lying to sitting position. SKIN: Warm, dry. No mass. Noted some ecchymoses from previous IV access points. noted minor skin break down fother lateral left hip secondary to constant lying on that tide. no active drailage with mild redness. no TTP of the sites. IMAGING: CT completed on 10/21/2017, with an impression of recent osteoporotic compression fracture of L2, 25% height loss with mild retropulsion. No obvious acute disk herniations or facet arthropathy at this time. ASSESSMENT AND PLAN: 1. 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 At this point, we reviewed the CT with the noted compression fracture at L2. Discussed with patient and caregivers, who are his son and his son's , the risks and benefits of kyphoplasty at that time. The patient and caregivers states that he is willing to move forward with the kyphoplasty, understanding the risks and benefits. Family and caregivers are in agreement as well. At this point, what we will do is order a panel of labs to include CBC, CMP, PT/INR and PTT, as well as a urinalysis for evaluation. Patient has not had aspirin in about 3 weeks, according to caregiver, so we will hold Lovenox and we will attempt to proceed with kyphoplasty, hopefully October 25, with Dr. Corrina Lou. 2. Noted minimal concern for decubitus ulcerations of the left hip, as it seems to be more superficial, but will continue to monitor that as well. 3. Noted the patient with history of uncontrolled diabetes. Has been eating minimally, and with this, his glucose levels have been running around 100-198. Will monitor closely for now and and continue to manage with insulin. 4. Acute and chronic pain. Will continue with dosing of [place] 10 mg 1 tablet every 4 hours as needed and adjust going forward, but patient seems to be very comfortable with the regimen. 5. Dehydaration to continue management with Fluid an IV hydration 6. Dementia. Will continue to monitor this as well. Case has been discussed with both Dr. Krish Streeter and Dr. Corrina Lou, and both are in agreement. Will check on patient moving forward and we will plan to proceed with kyphoplasty as long as the risks have been assessed and clinically indicated to do so. Thank you for the opportunity of caring for this patient. DICTATING PHYSICIAN: NEWTON SUMNER [id number] PHY#: [id number] ID: [id number] JOB#: [id number] ACCT: [id number] cc:NEWTON SUMNER > [facility]
[2017-10-24] MEDS: NORMAL SALINE 1000 ML 1,000 ML IV PRN (17:01)
--- NOTE | 2017-10-24 20:27 | PDOC PROGRESS REPORT ---
Subjective Progress Note for:: 10/24/17 Subjective:: Patient essentially bedbound, he is nonambulatory, he was seen by physical therapy, he could stand but unable to bear weight, he was seen by pain management, the plan is to undergo kyphoplasty of the compression fracture of the lumbar vertebra bone, he had x-ray done in the emergency room when he fell, of the hip joint, there was no demonstrable fracture. but is more alert since he has been on the IV fluid Reason For Visit: WEAKNESS OF THE LOWER EXTREMITY,LOSS OF MOBILITY Physical Exam Vital Signs: Temp Pulse Resp BP Pulse Ox 98.2 F 94 18 143/66 H 96 10/24/17 11:00 10/24/17 19:00 10/24/17 11:00 10/24/17 11:00 10/24/17 11:00 Intake & Output 10/23/17 10/24/17 10/25/17 06:59 06:59 06:59 Intake Total 2357 1425 800 Balance 2357 1425 800 Weight 81.1 kg 81.6 kg Eye exam: PRESENT: PERRLA Respiratory exam: PRESENT: clear to auscultation wenceslao Cardiovascular exam: PRESENT: +S1, +S2 Neurological exam: PRESENT: alert Results Laboratory Results: 10/24/17 06:34 10/24/17 06:34 10/24/17 10/24/17 06:34 06:34 WBC 9.3 RBC 4.97 Hgb 14.3 Hct 42.5 MCV 85 MCH 28.7 MCHC 33.6 RDW 15.4 H Plt Count 207 Seg Neutrophils % 72.5 Lymphocytes % 14.9 Monocytes % 10.8 Eosinophils % 1.1 Basophils % 0.7 Absolute Neutrophils 6.8 Absolute Lymphocytes 1.4 Absolute Monocytes 1.0 Absolute Eosinophils 0.1 Absolute Basophils 0.1 Sodium 134.7 L Potassium 3.8 Chloride 101 Carbon Dioxide 17 L Anion Gap 17 BUN 7 Creatinine 0.41 L Est GFR ( Amer) > 60 Est GFR (Non-Af Amer) > 60 Glucose 186 H Calcium 8.1 L Total Bilirubin 1.0 AST 26 ALT 23 Alkaline Phosphatase 152 H Total Protein 6.3 Albumin 2.9 L 10/21/17 10/21/17 10/22/17 18:40 18:40 00:48 Creatine Kinase 136 78 CK-MB (CK-2) 0.90 Troponin I < 0.012 07/31/18 07/31/18 07/31/18 00:48 06:54 06:54 Creatine Kinase 63 CK-MB (CK-2) 0.62 0.62 Troponin I 0.013 < 0.012 Impressions: Head MRI 10/21/17 00:00 IMPRESSION: No acute intracranial abnormality TECHNICAL DOCUMENTATION: Quality ID # [id number]: Final reports with documentation of one or more dose reduction techniques (e.g., Automated exposure control, adjustment of the mA and/or kV according to patient size, use of iterative reconstruction technique) 2010 [employer]- All Rights Reserved Lumbar Spine CT 10/21/17 10:29 IMPRESSION: Recent osteoporotic compression fracture L2. Chest X-Ray 10/21/17 17:44 IMPRESSION: Cardiomegaly without CHF. Tortuous descending aorta. Assessment & Plan - Diagnosis (1) Weakness of both lower extremities Is this a current diagnosis for this admission?: Yes (2) Compression fracture of L2 lumbar vertebra Qualifiers: Encounter type: initial encounter Fracture type: closed Qualified Code(s) : S32.020A - Wedge compression fracture of second lumbar vertebra, initial encounter for closed fracture Is this a current diagnosis for this admission?: Yes (3) Dementia Qualifiers: Dementia type: Alzheimer's disease Is this a current diagnosis for this admission?: Yes (4) Dehydration Is this a current diagnosis for this admission?: Yes - Plan Summary Plan Summary: Continue IV fluid, x-ray of the pelvic bone ordered
--- NOTE | 2017-10-24 22:03 | RADIOLOGY REPORT (SQ) ---
EXAM DESCRIPTION: PELVIS AP COMPLETED DATE/TIME: 10/24/2017 9:52 pm REASON FOR STUDY: CANNOT BEAR WEIGHT S22.040A WEDGE COMPRESSION FRACTURE OF FOURTH THORACIC VERTE COMPARISON: None. NUMBER OF VIEWS: One view TECHNIQUE: AP Pelvis LIMITATIONS: None. FINDINGS: MINERALIZATION: Normal. HIPS: No acute fracture or dislocation. No worrisome bone lesions. PELVIS AND SACRUM: No acute fracture or dislocation. No worrisome bone lesions. PUBIS AND ISCHIUM: No acute fracture. LOWER LUMBAR SPINE: No significant findings as visualized. SOFT TISSUES: No findings. OTHER: No other significant finding. IMPRESSION: NEGATIVE STUDY OF THE PELVIS. TECHNICAL DOCUMENTATION: JOB ID: [id number] [employer]- All Rights Reserved Reading location - IP/workstation name: [email or web address]
[2017-10-25 06:04] LABS: HEMATOCRIT 41.3 % (37.9-51.0); HEMOGLOBIN 13.8 g/dL (13.5-17.0); MEAN CORPUSCULAR HEMOGLOBIN 28.7 pg (27.0-33.4); MEAN CORPUSCULAR HGB CONC 33.4 g/dL (32.0-36.0); MEAN CORPUSCULAR VOLUME 86 fl (80-97); PLATELET COUNT 211 10^3/uL (150-450); RED BLOOD COUNT 4.81 10^6/uL (4.35-5.55); RED CELL DISTRIBUTION WIDTH 15.6 % (11.5-14.0); WHITE BLOOD COUNT 8.6 10^3/uL (4.0-10.5)
[2017-10-25 06:13] LABS: INTERNATIONAL RATION (INR) 1.08; PROTHROMBIN TIME 14.6 SEC (11.4-15.4)
[2017-10-25 06:14] LABS: PARTIAL THROMBOPLASTIN TIME 32.2 SEC (23.5-35.8)
[2017-10-25 06:30] LABS: ALANINE AMINOTRANSFERASE 23 U/L (21-72); ALBUMIN 2.9 g/dL (3.5-5.0); ALKALINE PHOSPHATASE 148 U/L (38-126); ANION GAP 16 (5-19); ASPARTATE AMINO TRANSFERASE 27 U/L (17-59); BILIRUBIN,DIRECT 0.5 mg/dL (0.0-0.4); BILIRUBIN,TOTAL 0.8 mg/dL (0.2-1.3); BLOOD UREA NITROGEN 10 mg/dL (7-20); CALCIUM 8.1 mg/dL (8.4-10.2); CARBON DIOXIDE 18 mmol/L (22-30); CHLORIDE 103 mmol/L (98-107); GLUCOSE 152 mg/dL (75-110); POTASSIUM 4.2 mmol/L (3.6-5.0); SODIUM 137.3 mmol/L (137-145); TOTAL PROTEIN 6.6 g/dL (6.3-8.2)
[2017-10-25] MEDS ORDERED: LIDOCAINE 1% INJ-PF (10 MG/ML) 30 ML SDV ONE (10:49)
[2017-10-25] MEDS ORDERED: MIDAZOLAM 2 MG/2 ML INJ ONE (10:53)
[2017-10-25] MEDS ORDERED: ONDANSETRON HCL INJ/PF 4 MG/2 ML SDV ONE (10:53)
[2017-10-25] MEDS ORDERED: FENTANYL CITRATE INJ/PF 100 MCG/2 ML AMPUL ONE (10:53)
[2017-10-25] MEDS ORDERED: LIDOCAINE 2% INJ-PF (20 MG/ML) 10 ML AMPUL ONE (10:53)
[2017-10-25] MEDS ORDERED: PROPOFOL INJ 200 MG/20 ML VIAL IV ONE (10:54)
[2017-10-25] MEDS ORDERED: CEFAZOLIN INJ 1 GM VIAL ONE ×2 (11:20→12:38)
[2017-10-25] MEDS ORDERED: DIPHENHYDRAMINE HCL 50 MG/ML VIAL IV PRN (11:59)
[2017-10-25] MEDS ORDERED: PROMETHAZINE HCL INJ 25 MG/1 ML VIAL IV PRN ×2 (11:59)
[2017-10-25] MEDS ORDERED: ONDANSETRON HCL INJ/PF 4 MG/2 ML SDV IV PRN (11:59)
[2017-10-25] MEDS ORDERED: MORPHINE SULFATE 10 MG/ML INJ IV PRN (11:59)
[2017-10-25] MEDS ORDERED: MEPERIDINE HCL/PF INJ 25 MG/1 ML DISP.SYRIN IV PRN (11:59)
[2017-10-25] MEDS ORDERED: FENTANYL CITRATE INJ/PF 100 MCG/2 ML AMPUL IV PRN ×3 (11:59)
[2017-10-25] MEDS ORDERED: HYDROCODONE/ACETAMINOPHEN 5-325 MG TABLET PO PRN (12:39)
--- NOTE | 2017-10-25 13:53 | RADIOLOGY REPORT (SQ) ---
EXAM DESCRIPTION: NO CHG FLUORO; L SPINE 2 VIEWS COMPLETED DATE/TIME: 10/25/2017 1:25 pm REASON FOR STUDY: KYPHOPLASTY LUMBAR ASST WITH FLUORO IN OR COMPARISON: None. FLUOROSCOPY TIME: 2.4 minutes 20 Images saved to PACS LIMITATIONS: None. PROCEDURE: Kyphoplasty FINDINGS: Images obtained from fluoro document kyphoplasty procedure. IMPRESSION: Kyphoplasty. Refer to operative note further information. COMMENT: PQRS 6045F: Fluoroscopy time of the procedure is documented in the report. TECHNICAL DOCUMENTATION: JOB ID: [id number] [employer]- All Rights Reserved Reading location - IP/workstation name: [email or web address]
--- NOTE | 2017-10-25 13:53 | RADIOLOGY REPORT (SQ) ---
EXAM DESCRIPTION: NO CHG FLUORO; L SPINE 2 VIEWS COMPLETED DATE/TIME: 10/25/2017 1:25 pm REASON FOR STUDY: KYPHOPLASTY LUMBAR ASST WITH FLUORO IN OR COMPARISON: None. FLUOROSCOPY TIME: 2.4 minutes 20 Images saved to PACS LIMITATIONS: None. PROCEDURE: Kyphoplasty FINDINGS: Images obtained from fluoro document kyphoplasty procedure. IMPRESSION: Kyphoplasty. Refer to operative note further information. COMMENT: PQRS 6045F: Fluoroscopy time of the procedure is documented in the report. TECHNICAL DOCUMENTATION: JOB ID: [id number] [employer]- All Rights Reserved Reading location - IP/workstation name: [email or web address]
[2017-10-25] MEDS: INSULIN LISPRO 100 UNIT/ML 3 ML VIAL SUBCUT PRN ×2 (16:53→21:18)
--- NOTE | 2017-10-25 20:28 | PDOC PROGRESS REPORT ---
Subjective Progress Note for:: 10/25/17 Subjective:: Patient was seen by the bedside, he had lumbar vertebrae kyphoplasty done today , he continues to have difficulty with weightbearing not able to stand, not eating much depending solely on IV fluids, patient may need residential home for long-term rehabilitation/physical therapy Reason For Visit: WEAKNESS OF THE LOWER EXTREMITY,LOSS OF MOBILITY Physical Exam Vital Signs: Temp Pulse Resp BP Pulse Ox 97.5 F 77 20 140/56 H 93 10/25/17 16:04 10/25/17 16:04 10/25/17 16:04 10/25/17 16:04 10/25/17 16:04 Intake & Output 10/24/17 10/25/17 10/26/17 06:59 06:59 06:59 Intake Total 4112 779 1180 Output Total 0 Balance 6194 789 2054 Weight 81.6 kg 79.8 kg Eye exam: PRESENT: PERRLA Respiratory exam: PRESENT: clear to auscultation wenceslao Cardiovascular exam: PRESENT: +S1, +S2 Neurological exam: PRESENT: alert Results Laboratory Results: 10/25/17 05:07 10/25/17 05:07 10/25/17 10/25/17 05:07 05:07 WBC 8.6 RBC 4.81 Hgb 13.8 Hct 41.3 MCV 86 MCH 28.7 MCHC 33.4 RDW 15.6 H Plt Count 211 Sodium 137.3 Potassium 4.2 Chloride 103 Carbon Dioxide 18 L Anion Gap 16 BUN 10 Creatinine 0.44 L Est GFR ( Amer) > 60 Est GFR (Non-Af Amer) > 60 Glucose 152 H Calcium 8.1 L Total Bilirubin 0.8 AST 27 ALT 23 Alkaline Phosphatase 148 H Total Protein 6.6 Albumin 2.9 L 10/21/17 10/21/17 10/22/17 18:40 18:40 00:48 Creatine Kinase 136 78 CK-MB (CK-2) 0.90 Troponin I < 0.012 10/22/17 10/22/17 10/22/17 00:48 06:54 06:54 Creatine Kinase 63 CK-MB (CK-2) 0.62 0.62 Troponin I 0.013 < 0.012 Impressions: Head MRI 10/21/17 00:00 IMPRESSION: No acute intracranial abnormality TECHNICAL DOCUMENTATION: Quality ID # 436: Final reports with documentation of one or more dose reduction techniques (e.g., Automated exposure control, adjustment of the mA and/or kV according to patient size, use of iterative reconstruction technique) 2010 [employer]- All Rights Reserved Lumbar Spine CT 10/21/17 10:29 IMPRESSION: Recent osteoporotic compression fracture L2. Chest X-Ray 10/21/17 17:44 IMPRESSION: Cardiomegaly without CHF. Tortuous descending aorta. Pelvis X-Ray 10/24/17 00:00 IMPRESSION: NEGATIVE STUDY OF THE PELVIS. Fluoroscopy 10/25/17 00:00 IMPRESSION: Kyphoplasty. Refer to operative note further information. Lumbar Spine X-Ray 10/25/17 00:00 IMPRESSION: Kyphoplasty. Refer to operative note further information. Assessment & Plan - Diagnosis (1) Weakness of both lower extremities Is this a current diagnosis for this admission?: Yes (2) Compression fracture of L2 lumbar vertebra Qualifiers: Encounter type: initial encounter Fracture type: closed Qualified Code(s) : S32.020A - Wedge compression fracture of second lumbar vertebra, initial encounter for closed fracture Is this a current diagnosis for this admission?: Yes (3) Dementia Qualifiers: Dementia type: Alzheimer's disease Is this a current diagnosis for this admission?: Yes (4) Dehydration Is this a current diagnosis for this admission?: Yes - Plan Summary Plan Summary: He has loss of mobility not explained presently on the basis of compression fracture of the lumbar vertebra
[2017-10-25] MEDS: NORMAL SALINE 1000 ML 1,000 ML IV PRN (20:30)
[2017-10-26] MEDS: NORMAL SALINE 1000 ML 1,000 ML IV PRN (11:45)
--- NOTE | 2017-10-26 16:34 | PDOC PROGRESS REPORT ---
Subjective Progress Note for:: 10/26/17 Subjective:: Patient seen by the bedside, is seems that this patient will require physical therapy/rehabilitation in a [facility]pc Reason For Visit: BILATERAL LOWE WEAKNESS COMPRESSION FRACTION Physical Exam Vital Signs: Temp Pulse Resp BP Pulse Ox 97.5 F 84 14 135/59 H 100 10/26/17 15:39 10/26/17 15:39 10/26/17 15:39 10/26/17 15:39 10/26/17 15:39 General appearance: PRESENT: no acute distress Eye exam: PRESENT: PERRLA Respiratory exam: PRESENT: clear to auscultation wenceslao Cardiovascular exam: PRESENT: +S1, +S2 GI/Abdominal exam: PRESENT: soft Neurological exam: PRESENT: alert Results Impressions: Head MRI 10/21/17 00:00 IMPRESSION: No acute intracranial abnormality TECHNICAL DOCUMENTATION: Quality ID # 436: Final reports with documentation of one or more dose reduction techniques (e.g., Automated exposure control, adjustment of the mA and/or kV according to patient size, use of iterative reconstruction technique) 2010 [employer]- All Rights Reserved Lumbar Spine CT 10/21/17 10:29 IMPRESSION: Recent osteoporotic compression fracture L2. Chest X-Ray 10/21/17 17:44 IMPRESSION: Cardiomegaly without CHF. Tortuous descending aorta. Pelvis X-Ray 10/24/17 00:00 IMPRESSION: NEGATIVE STUDY OF THE PELVIS. Fluoroscopy 10/25/17 00:00 IMPRESSION: Kyphoplasty. Refer to operative note further information. Lumbar Spine X-Ray 10/25/17 00:00 IMPRESSION: Kyphoplasty. Refer to operative note further information. Assessment & Plan - Diagnosis (1) Weakness of both lower extremities Is this a current diagnosis for this admission?: Yes (2) Compression fracture of L2 lumbar vertebra Qualifiers: Encounter type: initial encounter Fracture type: closed Qualified Code(s) : S32.020A - Wedge compression fracture of second lumbar vertebra, initial encounter for closed fracture Is this a current diagnosis for this admission?: Yes (3) Dementia Qualifiers: Dementia type: Alzheimer's disease Is this a current diagnosis for this admission?: Yes (4) Dehydration Is this a current diagnosis for this admission?: Yes
[2017-10-27] MEDS: NORMAL SALINE 1000 ML 1,000 ML IV PRN ×2 (01:15→15:43)
[2017-10-27] MEDS: ENOXAPARIN SODIUM INJ 40 MG/0.4 ML DISP.SYRIN SUBCUT SCH (12:13)
--- NOTE | 2017-10-27 12:52 | PDOC PROGRESS REPORT ---
Subjective Progress Note for:: 10/27/17 Subjective:: [facility] will need [facility] in a [facility] setting Reason For Visit: BILATERAL LOWER WEAKNESS COMPRESSION FRACTION Physical Exam Vital Signs: Temp Pulse Resp BP Pulse Ox 97.3 F 89 18 138/58 H 94 10/27/17 10:48 10/27/17 10:48 10/27/17 10:48 10/27/17 10:48 10/27/17 10:48 Intake & Output 10/26/17 10/27/17 10/28/17 06:59 06:59 06:59 Intake Total 1062 100 Balance 1062 100 Weight 78.5 kg General appearance: PRESENT: no acute distress Eye exam: PRESENT: PERRLA Respiratory exam: PRESENT: clear to auscultation wenceslao Cardiovascular exam: PRESENT: +S1, +S2 Neurological exam: PRESENT: alert Results Impressions: Head MRI 10/21/17 00:00 IMPRESSION: No acute intracranial abnormality TECHNICAL DOCUMENTATION: Quality ID # 436: Final reports with documentation of one or more dose reduction techniques (e.g., Automated exposure control, adjustment of the mA and/or kV according to patient size, use of iterative reconstruction technique) 2010 [employer]- All Rights Reserved Lumbar Spine CT 10/21/17 10:29 IMPRESSION: Recent osteoporotic compression fracture L2. Chest X-Ray 10/21/17 17:44 IMPRESSION: Cardiomegaly without CHF. Tortuous descending aorta. Pelvis X-Ray 10/24/17 00:00 IMPRESSION: NEGATIVE STUDY OF THE PELVIS. Fluoroscopy 10/25/17 00:00 IMPRESSION: Kyphoplasty. Refer to operative note further information. Lumbar Spine X-Ray 10/25/17 00:00 IMPRESSION: Kyphoplasty. Refer to operative note further information. Assessment & Plan - Diagnosis (1) Weakness of both lower extremities Is this a current diagnosis for this admission?: Yes (2) Compression fracture of L2 lumbar vertebra Qualifiers: Encounter type: initial encounter Fracture type: closed Qualified Code(s) : S32.020A - Wedge compression fracture of second lumbar vertebra, initial encounter for closed fracture Is this a current diagnosis for this admission?: Yes (3) Dementia Qualifiers: Dementia type: Alzheimer's disease Is this a current diagnosis for this admission?: Yes (4) Dehydration Is this a current diagnosis for this admission?: Yes
[2017-10-27] MEDS: INSULIN LISPRO 100 UNIT/ML 3 ML VIAL SUBCUT PRN (18:50)
[2017-10-28] MEDS: NORMAL SALINE 1000 ML 1,000 ML IV PRN (06:17)
[2017-10-28] MEDS: ENOXAPARIN SODIUM INJ 40 MG/0.4 ML DISP.SYRIN SUBCUT SCH (09:57)
[2017-10-28] MEDS: INSULIN LISPRO 100 UNIT/ML 3 ML VIAL SUBCUT PRN ×2 (12:19→17:27)
--- NOTE | 2017-10-28 14:30 | OPERATIVE REPORT E ---
Operative Report NAME: RUMA HALL : 1930 AGE: 86Y DATE OF SURGERY: 10/26/2017 ROOM: 336 PREOPERATIVE DIAGNOSIS: Lumbar vertebral compression fracture of the L2 vertebral body. POSTOPERATIVE DIAGNOSIS: Lumbar vertebral compression fracture of the L2 vertebral body. PROCEDURES PERFORMED: Percutaneous balloon kyphoplasty of the L2 vertebral body. SURGEON: SALTY MURRY M.D. COMPLICATIONS: None. SPECIMENS REMOVED: None. FINDINGS: Excellent spread of methylmethacrylate cement throughout the L2 vertebral body with no extravasation. ANTIBIOTICS: 1 gram Ancef given perioperatively. ESTIMATED BLOOD LOSS: 5 mL. ANESTHESIA: Local with MAC. INDICATIONS: The patient is an 86-year-old male with an L2 compression fracture. He has had increased pain. Notably, the patient suffers from dementia, but this has been reported by family members. Risks and benefits of procedure were discussed in detail, including but not limited to bleeding, bruising, infection, injury to nerves, arteries, veins, loss of bowel or bladder function, paralysis, and potentially even . The patient and family members expressed understanding, provided consent, and agreed to proceed. OPERATIVE DETAIL: The patient was accompanied by anesthesia staff to the operative suite where he was positioned in prone position and all pressure points were checked and padded. Standard ASA lines and monitors were applied. The patient was prepped in sterile fashion using chlorhexidine gluconate solution x2. A timeout protocol per [facility] standards was performed. The patient was draped using an [employer]oban universal drape. Additionally, the lateral and AP fluoroscopic guidance was utilized with 2 C-arms, which were draped sterilely into the field. The skin overlying the right L2 pedicle was marked and anesthetized with 1% plain lidocaine using a 25-gauge needle. Deeper tissues were infiltrated using a 3.5 inch 22-gauge spinal needle, making contact with the lateral margin of the right L2 pedicle. Skin incision was made using an 11-blade scalpel, and subsequently, the trocar provided by the [employer] kit with the sin tip was advanced under intermittent AP and lateral fluoroscopic guidance to the lateral margin of the right L2 pedicle. Once contact was made with the pedicle, the trocar was then gently advanced through the pedicle, taking great care to avoid any superior or inferior migration out of the pedicle and/or medial lateral migration. As the sin tip trocar entered the posterior cortex of the vertebral body, the trocar was advanced past the cortex and subsequently the drill provided by the [employer] medical kit was advanced to the anterior margin of the vertebral body. Following this, the balloon provided by the [employer] medical kit was inserted through the trocar and inflated to approximately 200 PSI with excellent spread. Notably, the balloon was quite midline, and at this point, it was decided to mix the methylmethacrylate cement on the back table. The cement introducer was placed through the trocar and cement injected with excellent spread in the midline and to the right side of the vertebral body with no extravasation of cement outside of the vertebral body. However, it was determined that there was not sufficient spread on the left side. As such, attention was turned to the left pedicle. A sin tip trocar was likewise advanced through the left pedicle after local anesthesia with 1% lidocaine and into the vertebral body. The balloon was inflated and then subsequently removed and the remaining cement was injected through the left pedicle. Excellent spread of cement was noted throughout the entire vertebral body with no migration to the posterior aspect of the spine nor any extravasation in any angulation. The trocars were removed. The skin was cleansed and bandages applied. The patient was accompanied to the recovery suite in stable condition. Total amount of cement injected 2.4 mL on the right side and 3.6 on the left for a total of 6 mL through the L2 vertebral body. DICTATING PHYSICIAN: SALTY MURRY M.D. [id number] PHY#: [id number] ID: [id number] JOB#: [id number] ACCT: [id number] cc:SALTY MURRY M.D. > MTDD
[2017-10-28 19:05] LABS: ABSOLUTE BASOPHILS # (AUTO) 0.1 10^3/uL (0.0-0.2); ABSOLUTE EOSINOPHILS # (AUTO) 0.1 10^3/uL (0.0-0.6); ABSOLUTE LYMPHOCYTES (AUTO) 1.5 10^3/uL (0.5-4.7); ABSOLUTE MONOCYTES (AUTO) 0.7 10^3/uL (0.1-1.4); ABSOLUTE NEUT (AUTO) 5.4 10^3/uL (1.7-8.2); BASOPHILS % (AUTO) 1.1 % (0-2); EOSINOPHILS % (AUTO) 1.3 % (0-6); HEMATOCRIT 39.8 % (37.9-51.0); HEMOGLOBIN 13.2 g/dL (13.5-17.0); LYMPHOCYTES % (AUTO) 18.8 % (13-45); MEAN CORPUSCULAR HEMOGLOBIN 28.6 pg (27.0-33.4); MEAN CORPUSCULAR HGB CONC 33.2 g/dL (32.0-36.0); MEAN CORPUSCULAR VOLUME 86 fl (80-97); MONOCYTES % (AUTO) 9.3 % (3-13); PLATELET COUNT 305 10^3/uL (150-450); RED BLOOD COUNT 4.61 10^6/uL (4.35-5.55); RED CELL DISTRIBUTION WIDTH 16.1 % (11.5-14.0); SEGMENTED NEUTROPHILS % (AUTO) 69.5 % (42-78); TOTAL CELLS COUNTED % (AUTO) 100 %; WHITE BLOOD COUNT 7.8 10^3/uL (4.0-10.5)
[2017-10-28 19:28] LABS: ALANINE AMINOTRANSFERASE 15 U/L (21-72); ALBUMIN 3.1 g/dL (3.5-5.0); ALKALINE PHOSPHATASE 184 U/L (38-126); ANION GAP 11 (5-19); ASPARTATE AMINO TRANSFERASE 22 U/L (17-59); BILIRUBIN,DIRECT 0.3 mg/dL (0.0-0.4); BILIRUBIN,TOTAL 0.5 mg/dL (0.2-1.3); BLOOD UREA NITROGEN 11 mg/dL (7-20); CALCIUM 8.4 mg/dL (8.4-10.2); CARBON DIOXIDE 23 mmol/L (22-30); CHLORIDE 103 mmol/L (98-107); GLUCOSE 211 mg/dL (75-110); POTASSIUM 3.7 mmol/L (3.6-5.0); SODIUM 136.7 mmol/L (137-145); TOTAL PROTEIN 6.8 g/dL (6.3-8.2)
--- NOTE | 2017-10-28 22:07 | PDOC PROGRESS REPORT ---
Subjective Progress Note for:: 10/28/17 Subjective:: Patient is hard of hearing, the nurses said he had episode of passage of bloody stool last night, the plan was to transfer to senior care for rehab but because of this concern for GI bleed consultation will be ordered from GI Reason For Visit: BILATERAL LOWER WEAKNESS COMPRESSION FRACTION Physical Exam Vital Signs: Temp Pulse Resp BP Pulse Ox 98.3 F 86 20 151/69 H 97 10/28/17 19:47 10/28/17 19:47 10/28/17 19:47 10/28/17 19:47 10/28/17 19:47 Intake & Output 10/27/17 10/28/17 10/29/17 06:59 06:59 06:59 Intake Total 1062 2275 250 Balance 1062 2275 250 Weight 78.5 kg 78.9 kg General appearance: PRESENT: no acute distress Eye exam: PRESENT: PERRLA Respiratory exam: PRESENT: clear to auscultation wenceslao Cardiovascular exam: PRESENT: +S1, +S2 GI/Abdominal exam: PRESENT: soft Neurological exam: PRESENT: alert Results Laboratory Results: 10/28/17 18:35 10/28/17 18:35 10/28/17 10/28/17 10/28/17 01:55 18:35 18:35 WBC 7.8 RBC 4.61 Hgb 13.2 L Hct 39.8 MCV 86 MCH 28.6 MCHC 33.2 RDW 16.1 H Plt Count 305 Seg Neutrophils % 69.5 Lymphocytes % 18.8 Monocytes % 9.3 Eosinophils % 1.3 Basophils % 1.1 Absolute Neutrophils 5.4 Absolute Lymphocytes 1.5 Absolute Monocytes 0.7 Absolute Eosinophils 0.1 Absolute Basophils 0.1 Sodium 136.7 L Potassium 3.7 Chloride 103 Carbon Dioxide 23 Anion Gap 11 BUN 11 Creatinine 0.48 L Est GFR ( Amer) > 60 Est GFR (Non-Af Amer) > 60 Glucose 211 H Calcium 8.4 Total Bilirubin 0.5 AST 22 ALT 15 L Alkaline Phosphatase 184 H Total Protein 6.8 Albumin 3.1 L Stool Occult Blood POSITIVE Impressions: Head MRI 10/21/17 00:00 IMPRESSION: No acute intracranial abnormality TECHNICAL DOCUMENTATION: Quality ID # 436: Final reports with documentation of one or more dose reduction techniques (e.g., Automated exposure control, adjustment of the mA and/or kV according to patient size, use of iterative reconstruction technique) 2010 [employer]- All Rights Reserved Lumbar Spine CT 10/21/17 10:29 IMPRESSION: Recent osteoporotic compression fracture L2. Chest X-Ray 10/21/17 17:44 IMPRESSION: Cardiomegaly without CHF. Tortuous descending aorta. Pelvis X-Ray 10/24/17 00:00 IMPRESSION: NEGATIVE STUDY OF THE PELVIS. Fluoroscopy 10/25/17 00:00 IMPRESSION: Kyphoplasty. Refer to operative note further information. Lumbar Spine X-Ray 10/25/17 00:00 IMPRESSION: Kyphoplasty. Refer to operative note further information. Assessment & Plan - Diagnosis (1) Weakness of both lower extremities Is this a current diagnosis for this admission?: Yes (2) Compression fracture of L2 lumbar vertebra Qualifiers: Encounter type: initial encounter Fracture type: closed Qualified Code(s) : S32.020A - Wedge compression fracture of second lumbar vertebra, initial encounter for closed fracture Is this a current diagnosis for this admission?: Yes (3) Dementia Qualifiers: Dementia type: Alzheimer's disease Is this a current diagnosis for this admission?: Yes (4) Dehydration Is this a current diagnosis for this admission?: Yes (5) GI bleed Qualifiers: GI bleed type/associated pathology: unspecified gastrointestinal hemorrhage type Qualified Code(s): K92.2 - Gastrointestinal hemorrhage, unspecified Is this a current diagnosis for this admission?: Yes Plan: GI consultation
[2017-10-29] MEDS: NORMAL SALINE 1000 ML 1,000 ML IV PRN ×2 (00:40→14:35)
[2017-10-29 06:40] LABS: ABSOLUTE BASOPHILS # (AUTO) 0.1 10^3/uL (0.0-0.2); ABSOLUTE EOSINOPHILS # (AUTO) 0.1 10^3/uL (0.0-0.6); ABSOLUTE LYMPHOCYTES (AUTO) 1.5 10^3/uL (0.5-4.7); ABSOLUTE MONOCYTES (AUTO) 0.8 10^3/uL (0.1-1.4); ABSOLUTE NEUT (AUTO) 4.3 10^3/uL (1.7-8.2); EOSINOPHILS % (AUTO) 1.1 % (0-6); HEMATOCRIT 33.1 % (37.9-51.0); HEMOGLOBIN 11.3 g/dL (13.5-17.0); LYMPHOCYTES % (AUTO) 22.9 % (13-45); MEAN CORPUSCULAR HEMOGLOBIN 29.1 pg (27.0-33.4); MEAN CORPUSCULAR HGB CONC 34.2 g/dL (32.0-36.0); MEAN CORPUSCULAR VOLUME 85 fl (80-97); MONOCYTES % (AUTO) 11.8 % (3-13); PLATELET COUNT 323 10^3/uL (150-450); RED BLOOD COUNT 3.89 10^6/uL (4.35-5.55); RED CELL DISTRIBUTION WIDTH 16.3 % (11.5-14.0); SEGMENTED NEUTROPHILS % (AUTO) 63.2 % (42-78); TOTAL CELLS COUNTED % (AUTO) 100 %; WHITE BLOOD COUNT 6.7 10^3/uL (4.0-10.5)
[2017-10-29 07:00] LABS: ALANINE AMINOTRANSFERASE 18 U/L (21-72); ALBUMIN 2.3 g/dL (3.5-5.0); ALKALINE PHOSPHATASE 151 U/L (38-126); ANION GAP 12 (5-19); ASPARTATE AMINO TRANSFERASE 19 U/L (17-59); BILIRUBIN,DIRECT 0.3 mg/dL (0.0-0.4); BILIRUBIN,TOTAL 0.6 mg/dL (0.2-1.3); BLOOD UREA NITROGEN 6 mg/dL (7-20); CALCIUM 7.5 mg/dL (8.4-10.2); CARBON DIOXIDE 19 mmol/L (22-30); CHLORIDE 107 mmol/L (98-107); GLUCOSE 166 mg/dL (75-110); POTASSIUM 3.8 mmol/L (3.6-5.0); SODIUM 137.6 mmol/L (137-145); TOTAL PROTEIN 5.5 g/dL (6.3-8.2)
[2017-10-29] MEDS: ENOXAPARIN SODIUM INJ 40 MG/0.4 ML DISP.SYRIN SUBCUT SCH (09:30)
--- NOTE | 2017-10-29 09:48 | PDOC CONSULTATION ---
Consultation Consult Date: 10/29/17 Attending physician:: LAKEISHA NARVAEZ Consult reason:: rectal bleeding History of Present Illness Admission Date/PCP: 10/26/17 12:05 PREM LUEVANO MD History of Present Illness: RUMA HALL is a 86 year old male Patient had recent osteoporotic fracture and had recent kyphoplasty was scheduled to be transferred but had episode of rectal bleeding asked to see patient anf transfer put on hold will need work up,colonoscopy is indicated patient may have baseline dementia Past Medical History Endocrine Medical History: Reports: Diabetes Mellitus Type 2 Psychiatric Medical History: Reports: Dementia Denies: Depression Social History Smoking Status: Former Smoker Frequency of Alcohol Use: None Hx Recreational Drug Use: No Drugs: None Hx Prescription Drug Abuse: No - Advance Directive Resuscitation Status: Full Code Family History Family History: Reviewed & Not Pertinent Parental Family History Reviewed: Yes Children Family History Reviewed: Unknown Sibling(s) Family History Reviewed.: Unknown Medication/Allergy Home Medications: Hydrocodone/Acetaminophen [Seneca 5-325 Tablet] 1 each PO Q6 PRN #12 tablet 10/16 Aspirin [Aspirin EC] 81 mg PO DAILY 10/21/17 Allergies/Adverse Reactions: No Known Allergies Allergy (Verified 10/16/17 10:19) Review of Systems Constitutional: ABSENT: fever(s), headache(s), night sweats Eyes: ABSENT: visual disturbances Ears: ABSENT: hearing changes Cardiovascular: ABSENT: edema, orthropnea Respiratory: ABSENT: dyspnea, hemoptysis Gastrointestinal: PRESENT: hematochezia. ABSENT: nausea, vomiting Genitourinary: ABSENT: dysuria, hematuria Musculoskeletal: ABSENT: deformity, joint swelling Integumentary: ABSENT: lesions, pruritus Neurological: PRESENT: weakness. ABSENT: tremor(s), vertigo Endocrine: ABSENT: polydipsia, polyphagia, polyuria Hematologic/Lymphatic: ABSENT: easy bruising Physical Exam Vital Signs: Temp Pulse Resp BP Pulse Ox 97.5 F 67 18 150/57 H 100 10/29/17 08:33 10/29/17 08:33 10/29/17 08:33 10/29/17 08:33 10/29/17 08:33 Intake & Output 10/28/17 10/29/17 10/30/17 06:59 06:59 06:59 Intake Total 2275 1250 Balance 2275 1250 Weight 78.9 kg 79.6 kg General appearance: PRESENT: well-developed, well-nourished Head exam: PRESENT: atraumatic, normocephalic Eye exam: PRESENT: EOMI, PERRLA. ABSENT: nystagmus, scleral icterus Mouth exam: PRESENT: moist, neck supple Throat exam: ABSENT: tonsillar exudate, tonsillogmegaly Neck exam: ABSENT: meningismus, tenderness, thyromegaly Respiratory exam: PRESENT: symmetrical, unlabored. ABSENT: tachypnea, wheezes Cardiovascular exam: PRESENT: RRR, +S1, +S2 GI/Abdominal exam: PRESENT: soft. ABSENT: rebound, rigid, tenderness Extremities exam: ABSENT: joint swelling Neurological exam: PRESENT: CN II-XII grossly intact Focused psych exam: ABSENT: restlessness Skin exam: PRESENT: normal color. ABSENT: mottled, pallor, urticaria, vesicles Results Laboratory Results: 10/29/17 06:19 10/29/17 06:19 10/28/17 10/28/17 10/29/17 18:35 18:35 06:19 WBC 7.8 6.7 RBC 4.61 3.89 L Hgb 13.2 L 11.3 L Hct 39.8 33.1 L MCV 86 85 MCH 28.6 29.1 MCHC 33.2 34.2 RDW 16.1 H 16.3 H Plt Count 305 323 Seg Neutrophils % 69.5 63.2 Lymphocytes % 18.8 22.9 Monocytes % 9.3 11.8 Eosinophils % 1.3 1.1 Basophils % 1.1 1.0 Absolute Neutrophils 5.4 4.3 Absolute Lymphocytes 1.5 1.5 Absolute Monocytes 0.7 0.8 Absolute Eosinophils 0.1 0.1 Absolute Basophils 0.1 0.1 Sodium 136.7 L Potassium 3.7 Chloride 103 Carbon Dioxide 23 Anion Gap 11 BUN 11 Creatinine 0.48 L Est GFR ( Amer) > 60 Est GFR (Non-Af Amer) > 60 Glucose 211 H Calcium 8.4 Total Bilirubin 0.5 AST 22 ALT 15 L Alkaline Phosphatase 184 H Total Protein 6.8 Albumin 3.1 L 10/29/17 06:19 WBC RBC Hgb Hct MCV MCH MCHC RDW Plt Count Seg Neutrophils % Lymphocytes % Monocytes % Eosinophils % Basophils % Absolute Neutrophils Absolute Lymphocytes Absolute Monocytes Absolute Eosinophils Absolute Basophils Sodium 137.6 Potassium 3.8 Chloride 107 Carbon Dioxide 19 L Anion Gap 12 BUN 6 L Creatinine 0.40 L Est GFR ( Amer) > 60 Est GFR (Non-Af Amer) > 60 Glucose 166 H Calcium 7.5 L Total Bilirubin 0.6 AST 19 ALT 18 L Alkaline Phosphatase 151 H Total Protein 5.5 L Albumin 2.3 L Impressions: Head MRI 10/21/17 00:00 IMPRESSION: No acute intracranial abnormality TECHNICAL DOCUMENTATION: Quality ID # 436: Final reports with documentation of one or more dose reduction techniques (e.g., Automated exposure control, adjustment of the mA and/or kV according to patient size, use of iterative reconstruction technique) 2010 [employer]- All Rights Reserved Lumbar Spine CT 10/21/17 10:29 IMPRESSION: Recent osteoporotic compression fracture L2. Chest X-Ray 10/21/17 17:44 IMPRESSION: Cardiomegaly without CHF. Tortuous descending aorta. Pelvis X-Ray 10/24/17 00:00 IMPRESSION: NEGATIVE STUDY OF THE PELVIS. Fluoroscopy 10/25/17 00:00 IMPRESSION: Kyphoplasty. Refer to operative note further information. Lumbar Spine X-Ray 10/25/17 00:00 IMPRESSION: Kyphoplasty. Refer to operative note further information. Assessment & Plan - Diagnosis (1) GI bleed Qualifiers: GI bleed type/associated pathology: unspecified gastrointestinal hemorrhage type Qualified Code(s): K92.2 - Gastrointestinal hemorrhage, unspecified Is this a current diagnosis for this admission?: Yes Plan: will need colonoscopy Risks, benefits and alternatives to be explained orders written for prep if work up is negative, can be transferred as planned colonoscopy to be done tomorrow - Time Time Spent: 50 to 70 Minutes
[2017-10-29] MEDS: INSULIN LISPRO 100 UNIT/ML 3 ML VIAL SUBCUT PRN ×2 (12:14→18:40)
[2017-10-29] MEDS ORDERED: BISACODYL 5 MG TABEC PO ONE ×2 (15:00→20:00)
[2017-10-29] MEDS ORDERED: MAGNESIUM CITRATE 296 ML BOTTLE PO ONE ×2 (15:00→20:00)
--- NOTE | 2017-10-29 21:26 | PDOC PROGRESS REPORT ---
Subjective Progress Note for:: 10/29/17 Subjective:: Patient was seen today by the bedside, he was seen by GI, he will have colon prep today and colonoscopy tomorrow Reason For Visit: BILATERAL LOWER WEAKNESS COMPRESSION FRACTION Physical Exam Vital Signs: Temp Pulse Resp BP Pulse Ox 98.2 F 92 16 136/63 H 99 10/29/17 19:49 10/29/17 19:49 10/29/17 19:49 10/29/17 19:49 10/29/17 19:49 Intake & Output 10/28/17 10/29/17 10/30/17 06:59 06:59 06:59 Intake Total 2275 1250 1424 Balance 2275 1250 1424 Weight 78.9 kg 79.6 kg General appearance: PRESENT: no acute distress Eye exam: PRESENT: PERRLA Respiratory exam: PRESENT: clear to auscultation wenceslao Cardiovascular exam: PRESENT: +S1, +S2 GI/Abdominal exam: PRESENT: soft Neurological exam: PRESENT: alert Results Laboratory Results: 10/29/17 06:19 10/29/17 06:19 10/29/17 10/29/17 06:19 06:19 WBC 6.7 RBC 3.89 L Hgb 11.3 L Hct 33.1 L MCV 85 MCH 29.1 MCHC 34.2 RDW 16.3 H Plt Count 323 Seg Neutrophils % 63.2 Lymphocytes % 22.9 Monocytes % 11.8 Eosinophils % 1.1 Basophils % 1.0 Absolute Neutrophils 4.3 Absolute Lymphocytes 1.5 Absolute Monocytes 0.8 Absolute Eosinophils 0.1 Absolute Basophils 0.1 Sodium 137.6 Potassium 3.8 Chloride 107 Carbon Dioxide 19 L Anion Gap 12 BUN 6 L Creatinine 0.40 L Est GFR ( Amer) > 60 Est GFR (Non-Af Amer) > 60 Glucose 166 H Calcium 7.5 L Total Bilirubin 0.6 AST 19 ALT 18 L Alkaline Phosphatase 151 H Total Protein 5.5 L Albumin 2.3 L Impressions: Head MRI 10/21/17 00:00 IMPRESSION: No acute intracranial abnormality TECHNICAL DOCUMENTATION: Quality ID # 436: Final reports with documentation of one or more dose reduction techniques (e.g., Automated exposure control, adjustment of the mA and/or kV according to patient size, use of iterative reconstruction technique) 2010 [employer]- All Rights Reserved Lumbar Spine CT 10/21/17 10:29 IMPRESSION: Recent osteoporotic compression fracture L2. Chest X-Ray 10/21/17 17:44 IMPRESSION: Cardiomegaly without CHF. Tortuous descending aorta. Pelvis X-Ray 10/24/17 00:00 IMPRESSION: NEGATIVE STUDY OF THE PELVIS. Fluoroscopy 10/25/17 00:00 IMPRESSION: Kyphoplasty. Refer to operative note further information. Lumbar Spine X-Ray 10/25/17 00:00 IMPRESSION: Kyphoplasty. Refer to operative note further information. Assessment & Plan - Diagnosis (1) Weakness of both lower extremities Is this a current diagnosis for this admission?: Yes (2) Compression fracture of L2 lumbar vertebra Qualifiers: Encounter type: initial encounter Fracture type: closed Qualified Code(s) : S32.020A - Wedge compression fracture of second lumbar vertebra, initial encounter for closed fracture Is this a current diagnosis for this admission?: Yes (3) Dementia Qualifiers: Dementia type: Alzheimer's disease Is this a current diagnosis for this admission?: Yes (4) Dehydration Is this a current diagnosis for this admission?: Yes (5) GI bleed Qualifiers: GI bleed type/associated pathology: unspecified gastrointestinal hemorrhage type Qualified Code(s): K92.2 - Gastrointestinal hemorrhage, unspecified Is this a current diagnosis for this admission?: Yes
--- NOTE | 2017-10-30 07:54 | Progress Note ---
Provider Note Provider Note: patient could not cooperate with prep overnight patient could not even get enemas has brown stools, incontinent WILL NOT be able to proceed with procedure unless the patient in prepped procedure is therefore cancelled, please call if there are any changes in the situation,
[2017-10-30] MEDS: NORMAL SALINE 1000 ML 1,000 ML IV PRN (09:16)
[2017-10-30] MEDS: ENOXAPARIN SODIUM INJ 40 MG/0.4 ML DISP.SYRIN SUBCUT SCH (09:19)
--- NOTE | 2017-10-30 14:17 | PDOC TRANSFER SUMMARY ---
General - Admit/Disc Date/PCP Admission Date/Primary Care Provider: 10/26/17 12:05 PREM LUEVANO MD Discharge Date: 10/30/17 - Discharge Diagnosis (1) Weakness of both lower extremities Is this a current diagnosis for this admission?: Yes (2) Compression fracture of L2 lumbar vertebra Is this a current diagnosis for this admission?: Yes (3) Dementia Is this a current diagnosis for this admission?: Yes (4) Dehydration Is this a current diagnosis for this admission?: Yes (5) Lower GI bleed Is this a current diagnosis for this admission?: Yes (6) Hard of hearing Is this a current diagnosis for this admission?: Yes - Additional Information Resuscitation Status: Full Code Prescriptions: Acetaminophen 500 mg PO Q6H #120 tablet Home Medications: Aspirin [Aspirin EC] 81 mg PO DAILY 10/21/17 Acetaminophen 500 mg PO Q6H #120 tablet 10/30/17 History of Present Illness Admission Date/PCP: 10/26/17 12:05 PREM LUEVANO MD History of Present Illness: RUMA HALL is a 86 year old male,He was evaluated in the emergency room on 10/16/2017 when he presented to the emergency department with a history of witnessed fall that occurred 2 days before he presented to the emergency room for evaluation. Patient was transferred to the emergency room by EMS accompanied by his son the history was that patient fell off a kitchen chair onto his buttock, he was able to ambulate into his bedroom subsequently but in the last 24 hours before he presented to the ER he was not ambulating. In the emergency room x-rays of the joints, lumbar spine including MRI of the lumbar spine was done, MRI of the lumbar spine showed mild compression fracture of L2 vertebra with some minimal increase signal intensity involving the L2 vertebra suggesting a recent compression fracture. He came to the office on a stretcher with EMS accompanied by his son, the son stated that patient has not ambulated since he fell, I reviewed the MRI lumbar spine in the office I was not convinced that a mild compression fracture of the L2 vertebra will cause such weakness of the lower extremities I felt patient needed to be admitted to the hospital for further evaluation. I requested for MRI of the brain but for some reason a CT scan of the brain was done instead, it demonstrated no hemorrhage nor mass lesion there was diffuse cerebral atrophy with mild to moderate periventricular and deep white matter chronic microvascular changes. 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 family also stated that patient has not been eating or drinking the last few days. Hospital Course Hospital Course: Patient was admitted for the management of lower extremity weakness with a background of compression fracture of lumbar vertebrae, he was seen by pain management he underwent kyphoplasty of the lumbar vertebrae. Patient is hard of hearing, he did not participate in physical therapy. The nurses noted episode of passage of bloody stool, consultation was obtained, he was supposed to have colonoscopy done but he refused to take the bowel prep for the colonoscopy so this was canceled. The exact etiology of the loss of mobility was not clear, it was felt that the compression fracture of the lumbar vertebrae should not cause loss of mobility that was experienced by this patient , the other issue was anorexia and lack of intake. He was treated with IV fluid for replenishment of electrolytes and fluid. He has a baseline dementia, the combination of dementia, advanced age could be a factor in the etiology of the loss of mobility of the lower extremity. MRI of the brain was done there was no stroke demonstrated, atrophy of the brain demonstrated on MRI. Physical Exam Vital Signs: Temp Pulse Resp BP Pulse Ox 98.3 F 88 20 159/57 H 100 10/30/17 12:18 10/30/17 12:18 10/30/17 12:18 10/30/17 12:18 10/30/17 12:18 Intake & Output 10/29/17 10/30/17 10/31/17 06:59 06:59 06:59 Intake Total 1250 2424 Balance 1250 2424 Weight 79.6 kg 79.7 kg General appearance: PRESENT: no acute distress Head exam: PRESENT: atraumatic, normocephalic Eye exam: PRESENT: conjunctiva pink, EOMI, PERRLA Ear exam: PRESENT: normal external ear exam Mouth exam: PRESENT: moist, tongue midline Respiratory exam: PRESENT: clear to auscultation wenceslao Cardiovascular exam: PRESENT: RRR, +S1, +S2 Pulses: PRESENT: normal dorsalis pedis pul Vascular exam: PRESENT: normal capillary refill GI/Abdominal exam: PRESENT: normal bowel sounds, soft Rectal exam: PRESENT: deferred Extremities exam: PRESENT: full ROM Neurological exam: PRESENT: alert Skin exam: PRESENT: dry, intact, warm Results Laboratory Results: 10/29/17 06:19 10/29/17 06:19 Impressions: Head MRI 10/21/17 00:00 IMPRESSION: No acute intracranial abnormality TECHNICAL DOCUMENTATION: Quality ID # 436: Final reports with documentation of one or more dose reduction techniques (e.g., Automated exposure control, adjustment of the mA and/or kV according to patient size, use of iterative reconstruction technique) 2010 [employer]- All Rights Reserved Lumbar Spine CT 10/21/17 10:29 IMPRESSION: Recent osteoporotic compression fracture L2. Chest X-Ray 10/21/17 17:44 IMPRESSION: Cardiomegaly without CHF. Tortuous descending aorta. Pelvis X-Ray 10/24/17 00:00 IMPRESSION: NEGATIVE STUDY OF THE PELVIS. Fluoroscopy 10/25/17 00:00 IMPRESSION: Kyphoplasty. Refer to operative note further information. Lumbar Spine X-Ray 10/25/17 00:00 IMPRESSION: Kyphoplasty. Refer to operative note further information. Qualifiers - * PATIENT BEING DISCHARGED WITH ANY OF THE FOLLOWING DIAGNOSIS: No
[2017-10-30 16:05] VITALS: BP 147/63
== END 2017-10-30 17:05 | DRG 516 ==
LOC: ER 10:16 → INTOOBSV 11:05 → EH 11:05 → 3S 13:01 → OBSVTOIN 10-26 12:05
PROVIDERS: ADMIT Internal Medicine; ATTEND Internal Medicine
PROC: 0QS03ZZ Reposition Lumbar Vertebra, Percutaneous Approach (ICD-10-PCS; principal; 2017-10-26)
PROC: 0QU03JZ Supplement Lumbar Vertebra with Synthetic Substitute, Percutaneous Approach (ICD-10-PCS; 2017-10-26)
DX: S32.020A Wedge compression fracture of second lumbar vertebra, initial encounter for closed fracture (principal); K62.5 Hemorrhage of anus and rectum; Q25.46 Tortuous aortic arch; F03.90 Unspecified dementia, unspecified severity, without behavioral disturbance, psychotic disturbance, mood disturbance, and anxiety; E86.0 Dehydration; H91.90 Unspecified hearing loss, unspecified ear; W07.XXXA Fall from chair, initial encounter; Y92.010 Kitchen of single-family (private) house as the place of occurrence of the external cause; E11.9 Type 2 diabetes mellitus without complications; I25.10 Atherosclerotic heart disease of native coronary artery without angina pectoris; L89.229 Pressure ulcer of left hip, unspecified stage; G30.9 Alzheimer's disease, unspecified; F02.80 Dementia in other diseases classified elsewhere, unspecified severity, without behavioral disturbance, psychotic disturbance, mood disturbance, and anxiety; Z87.891 Personal history of nicotine dependence; Z87.442 Personal history of urinary calculi; Z79.1 Long term (current) use of non-steroidal anti-inflammatories (NSAID); Z74.01 Bed confinement status
CPT/HCPCS: 01936; 36415; 70551; 71045; 72100; 72131; 72170; 80048; 80053; 80061; 80076; 81001; 82140; 82150; 82272; 82550; 82553; 82962; 83036; 83690; 83735; 84100; 84439; 84443; 84484; 85025; 85027; 85610; 85730; 87040; 93005; 93010; 93306; 99285; C1713; C1758; G0378; G8978-GP; G8979-GP; J0690; J1650; J1815; J2250; J2270; J2405; J2704; J3010; J3490; J7030; Q9966

== ENCOUNTER 2017-11-12 15:51 | Emergency (ER) | payer MEDICARE ==
--- NOTE | 2017-11-12 18:06 | RADIOLOGY REPORT (SQ) ---
EXAM DESCRIPTION: CT HEAD WITHOUT COMPLETED DATE/TIME: 11/12/2017 5:55 pm REASON FOR STUDY: fall recent kyphoplasty COMPARISON: MR 10/21/2017 TECHNIQUE: Axial images acquired through the brain without intravenous contrast. Images reviewed wi th bone, brain and subdural windows. Additional sagittal and coronal reconstructions were generated. Images stored on PACS. All CT scanners at this facility use dose modulation, iterative reconstruction, and/or weight based d osing when appropriate to reduce radiation dose to as low as reasonably achievable (ALARA). [facility]: Dose Right [facility]: CareDose [facility]: Dose Right [facility]: Teradose 4D [facility]: Smart Touchbase RADIATION DOSE: CT Rad equipment meets quality standard of care and radiation dose reduction techniq ues were employed. CTDIvol: 55.2 mGy. DLP: 1084 mGy-cm. mGy. LIMITATIONS: None. FINDINGS: VENTRICLES: Normal size and contour. CEREBRUM: Cortical atrophy. No masses. No hemorrhage. No midline shift. No evidence for acute in farction. Areas of low density in the white matter most likely chronic small vessel ischemic changes. CEREBELLUM: No masses. No hemorrhage. No alteration of density. No evidence for acute infarction. EXTRAAXIAL SPACES: No fluid collections. No masses. ORBITS AND GLOBE: No intra- or extraconal masses. Normal contour of globe without masses. CALVARIUM: No fracture. PARANASAL SINUSES: No fluid or mucosal thickening. SOFT TISSUES: No mass or hematoma. OTHER: No other significant finding. IMPRESSION: Involutional changes of aging with chronic microvascular ischemia. No acute intracrania l imaging findings. EVIDENCE OF ACUTE STROKE: NO. COMMENT: Quality ID # [id number]: Final reports with documentation of one or more dose reduction techniques (e.g., Automated exposure control, adjustment of the mA and/or kV according to patient size, use of iterative reconstruction technique) TECHNICAL DOCUMENTATION: JOB ID: [id number] [employer]- All Rights Reserved Reading location - IP/workstation name: [email or web address]
--- NOTE | 2017-11-12 18:08 | RADIOLOGY REPORT (SQ) ---
EXAM DESCRIPTION: CT LUMBAR SPINE WITHOUT; CT THORACIC SPINE WITHOUT; CT CERVICAL SPINE WITHOUT COMPLETED DATE/TIME: 11/12/2017 5:55 pm REASON FOR STUDY: fall recent kyphoplasty COMPARISON: Lumbar spine imaging from September. TECHNIQUE: Axial images acquired through the cervical, thoracic and lumbar spine without intravenous contrast. Images reviewed with lung, soft tissue and bone windows. Reconstructed coronal and sagit ralph MPR images reviewed. Images stored on PACS. All CT scanners at this facility use dose modulation, iterative reconstruction, and/or weight based d osing when appropriate to reduce radiation dose to as low as reasonably achievable (ALARA). [facility]: Dose Right [facility]: CareDose [facility]: Dose Right [facility]: Teradose 4D [facility]: Smart [employer] RADIATION DOSE: CT Rad equipment meets quality standard of care and radiation dose reduction techniq ues were employed. CTDIvol: 99.2 mGy. DLP: 3291 mGy-cm.; CT Rad equipment meets quality standard of c are and radiation dose reduction techniques were employed. CTDIvol: 19.5 mGy. DLP: 448 mGy-cm. mGy. LIMITATIONS: None. FINDINGS: CERVICAL ALIGNMENT: Anatomic. MINERALIZATION: Osteopenic. VERTEBRAL BODIES: No overt fracture or bone lesion. DISCS: Disc space loss, most notable at C5-6 and C6-7. FACETS, LATERAL MASSES, POSTERIOR ELEMENTS: No fractures. No dislocation. No acute findings. HARDWARE: None in the spine. VISUALIZED RIBS: No fractures. LUNG APICES AND SOFT TISSUES: No significant or acute findings. THORACIC ALIGNMENT: No evidence of subluxation or dislocation. MINERALIZATION: Osteopenic. VERTEBRAL BODIES: Mild nonacute appearing T1 fracture, minimal height loss. Other vertebrae are main tained. DISCS: Mild multilevel disc disease. FACETS, LATERAL MASSES, POSTERIOR ELEMENTS: No fractures. No dislocation. No acute findings. HARDWARE: None in the spine. VISUALIZED RIBS: No fractures. SOFT TISSUES: No significant or acute findings. LUMBAR ALIGNMENT: Anatomic. MINERALIZATION: Osteopenic. VERTEBRAL BODIES: No acute fracture appreciated. L2 chronic compression fracture post kyphoplasty. DISCS: Disc space loss particularly at L5-S1. FACETS, POSTERIOR ELEMENTS: No pars defect or fracture evident. HARDWARE: None in the spine. SOFT TISSUES: No significant or acute findings. OTHER: No other significant finding. IMPRESSION: 1. Osteopenic. 2. No acute cervical, thoracic or lumbar spine fracture or malalignmen t detected. TECHNICAL DOCUMENTATION: JOB ID: [id number] Quality ID # [id number]: Final reports with documentation of one or more dose reduction techniques (e.g., Au tomated exposure control, adjustment of the mA and/or kV according to patient size, use of iterative reconstruction technique) 2010 [employer]- All Rights Reserved Reading location - IP/workstation name: [email or web address]
--- NOTE | 2017-11-12 18:53 | ER Document Report ---
ED Fall - General Chief Complaint: Fall Stated Complaint: WEAKNESS Time Seen by Provider: 11/12/17 16:32 Mode of Arrival: Medic Information source: Relative, Outside Facility Records Cannot obtain history due to: Dementia Notes: 86-year-old male with dementia, recent kyphoplasty secondary to lumbar compression presents via EMS from [facility] after slipping out of his wheelchair landing onto the floor. Brother is at the bedside and provides me this history. Patient is a and O 0 which is his baseline and is unable to breath by me any history. Per the brother 3 weeks ago patient had a fall at home which resulted in compression fractures which required kyphoplasty which was performed by Dr. Tierney. Patient has been at [facility] for 2 weeks for rehabilitation. TRAVEL OUTSIDE OF THE [place] IN LAST 30 DAYS: No - HPI Occurred: Just prior to arrival Where: Indoors Context: Slipped Associated symptoms: None Location of injury/pain: Back Quality of pain: No pain Severity: None Pain Level: Denies Prehospital interventions: No: C-collar, Backboard - Related data Allergies/Adverse Reactions: No Known Allergies Allergy (Verified 10/16/17 10:19) Past Medical History - General Information source: Relative, [facility] Records, Outside Facility Records Cannot obtain history due to: Dementia - Social History Smoking Status: Unknown if Ever Smoked Lives with: Longterm Family History: Reviewed & Not Pertinent Patient has suicidal ideation: No Patient has homicidal ideation: No Endocrine Medical History: Reports: Hx Diabetes Mellitus Type 2 Renal/ Medical History: Reports: Hx Kidney Stones. Denies: Hx Peritoneal Dialysis Psychiatric Medical History: Reports: Hx Dementia Denies: Hx Depression Past Surgical History: Reports: Hx Cardiac Surgery - bypass Review of Systems - Review of Systems -: Yes ROS unobtainable due to patient's medical condition Physical Exam - Vital signs Vitals: Temp Pulse Resp BP Pulse Ox 97.6 F 29 L 28 H 121/77 100 11/12/17 16:08 11/12/17 16:08 11/12/17 16:08 11/12/17 16:08 11/12/17 16:08 - Notes Notes: PHYSICAL EXAMINATION: GENERAL: Well-appearing, well-nourished and in no acute distress. HEAD: Atraumatic, normocephalic. EYES: Pupils equal round and reactive to light, extraocular movements intact, sclera anicteric, conjunctiva are normal. ENT: Nares patent, oropharynx clear without exudates. Moist mucous membranes. No hemanotympanum . No blood in nares. No dental fracture NECK: Normal range of motion, supple without lymphadenopathy. Trachea midline LUNGS: Breath sounds clear to auscultation bilaterally and equal. No wheezes rales or rhonchi. HEART: Regular rate and rhythm without murmurs. Pulses intact all throughout. ABDOMEN: Soft, nontender, nondistended abdomen. No guarding, no rebound. No masses appreciated. Musculoskeletal: Normal range of motion, no pitting or edema. No cyanosis. Hip non tender, stable. No midline tenderness of the cervical, thoracic or lumbar spine. NEUROLOGICAL: A and O 1 secondary to dementia PSYCH: Normal mood, normal affect. SKIN: Warm, No active bleeding Course - Re-evaluation Re-evalutation: Cervical Spine CT 11/12/17 16:35 IMPRESSION: 1. Osteopenic. 2. No acute cervical, thoracic or lumbar spine fracture or malalignment detected. Head CT 11/12/17 16:35 IMPRESSION: Involutional changes of aging with chronic microvascular ischemia. No acute intracranial imaging findings. EVIDENCE OF ACUTE STROKE: NO. Lumbar Spine CT 11/12/17 16:35 IMPRESSION: 1. Osteopenic. 2. No acute cervical, thoracic or lumbar spine fracture or malalignment detected. Thoracic Spine CT 11/12/17 16:35 IMPRESSION: 1. Osteopenic. 2. No acute cervical, thoracic or lumbar spine fracture or malalignment detected. 11/13/17 15:25 A 86-year-old male with history of dementia and presents via EMS from [facility] after slipping out of his chair landing onto the floor. Patient had a recent fall which resulted in compression fractures and required kyphoplasty which is why he is at [facility]. Patient is alert and oriented 0 with his reported baseline and cannot provide me any history. Patient's exam shows no evidence of head trauma, no obvious deformities on x- ray. CT of the head, cervical spine, thoracic spine and lumbar spine were obtained and showed no acute process. Patient was discharged back to [facility]. - Vital Signs Vital signs: Temp Pulse Resp BP Pulse Ox 98.7 F 102 H 24 H 126/66 H 100 11/12/17 19:22 11/12/17 19:22 11/12/17 19:22 11/12/17 19:22 11/12/17 19:22 - Diagnostic Test Radiology reviewed: Image reviewed, Reports reviewed Discharge - Discharge Clinical Impression: Fall Qualifiers: Encounter type: initial encounter Qualified Code(s): W19.XXXA - Unspecified fall, initial encounter Dementia Qualifiers: Dementia type: unspecified type Dementia behavioral disturbance: with behavioral disturbance Qualified Code(s): F03.91 - Unspecified dementia with behavioral disturbance Compression fracture of L2 lumbar vertebra Qualifiers: Encounter type: sequela Fracture type: closed Qualified Code(s): S32.020S - Wedge compression fracture of second lumbar vertebra, sequela Condition: Good Disposition: SNF-Other Instructions: Compression Fracture of the Spine ([facility]), Dementia ([facility]) Additional Instructions: CAT scans of your head, neck, thoracic spine and lumbar spine were obtained today and show no new fractures or malalignment. Referrals: PREM LUEVANO MD [Primary Care Provider] - Follow up as needed
[2017-11-12 19:30] VITALS: BP 126/66
== END 2017-11-12 19:32 ==
LOC: ER 15:51
DX: S32.020S Wedge compression fracture of second lumbar vertebra, sequela (principal); R53.1 Weakness; F03.91 Unspecified dementia, unspecified severity, with behavioral disturbance; Z98.890 Other specified postprocedural states; W05.0XXA Fall from non-moving wheelchair, initial encounter; E11.9 Type 2 diabetes mellitus without complications
CPT/HCPCS: 70450; 72125; 72128; 72131; 99285